=== PATIENT | female | born 1975 | race Caucasian/White ===

== ENCOUNTER → 2018-03-24 | Outpatient (CLI) | payer OTHER ==
--- NOTE | 2018-03-24 19:41 | MR ---
EXAMINATION TYPE: MR cervical spine wo con DATE OF EXAM: 03/24/2018 COMPARISON: None HISTORY: Neck pain, rt arm/hand weakness and numbness x 2 weeks TECHNIQUE: Multiplanar, multisequence images of the cervical spine were acquired. C2-C3: No evidence for degenerative disc disease. No disc bulge/herniation or protrusion. No Canal stenosis. Foramina are patent bilaterally. C3-C4: Minimal central posterior disc bulge causes only slight anterior mass effect on the thecal sac . No Canal stenosis. Foramina are patent bilaterally, there is some mild uncovertebral joint hypert rophy in the right, minimal stenosis. C4-C5: Broad-based posterior disc bulge causes slight anterior mass effect on the thecal sac. No sign ificant foraminal encroachment or central stenosis. C5-C6: Posterior central disc herniation contacts the anterior cervical cord, there is mild cord defo rmity, mild central canal stenosis. Minimal foraminal encroachment due to uncovertebral joint hypertr ophy. C6-C7: Broad-based posterior disc bulge causes mild anterior mass effect on the thecal sac, no signif icant central stenosis. Some mild uncovertebral joint hypertrophy causes only slight foraminal encroa chment. C7-T1: No evidence for degenerative disc disease. No disc bulge/herniation or protrusion. No Canal stenosis. Foramina are patent bilaterally. Cervical segments are intact. There is normal alignment. Cervical spinal cord is of normal signal. Craniovertebral junction relationships are within normal limits. There is loss of disc height and s ignal present at C5-6, C6-7. Multiple bilateral cervical lymph nodes are symmetric, nonenlarged IMPRESSION: Degenerative disc disease, disc herniation at C5-6 centrally. Additional findings above.
== END | disposition home or self-care (01) ==
LOC: RADMRIMAIN 18:15
PROVIDERS: ATTEND Internal Medicine
DX: M50.21 Other cervical disc displacement, high cervical region (principal); M50.30 Other cervical disc degeneration, unspecified cervical region
CPT/HCPCS: 72141

== ENCOUNTER 2018-04-08 12:30 | Inpatient (IN) | payer MEDICAID, OTHER ==
--- NOTE | 2018-04-08 13:07 | ED ---
Psych HPI - General Chief Complaint: Psychiatric Symptoms Stated Complaint: EPS eval Time Seen by Provider: 04/08/18 12:53 Source: patient, RN notes reviewed Mode of arrival: ambulatory - History of Present Illness Initial Comments: This is a 42-year-old female history of opioid abuse who states she is clean now but she is here because she did feeling very depressed and suicidal last couple weeks.. She did fall. She states she lost her lost her kids and can't work because of cervical disc disease. She does have suicidal thoughts and ideation. MD Complaint: suicidal ideation, feels depressed - Related Data Home Medications Medication Instructions Recorded Confirmed Buprenorphine HCl/Naloxone HCl 1 each SL TID 04/08/18 04/08/18 [Suboxone 8 mg-2 mg Sl Film] Furosemide [Lasix] 20 mg PO DAILY 04/08/18 04/08/18 Ibuprofen [Motrin] 800 - 2,400 mg PO DAILY 04/08/18 04/08/18 Lisinopril [Prinivil] 5 mg PO DAILY 04/08/18 04/08/18 Loratadine 10 mg PO DAILY 04/08/18 04/08/18 Metoprolol Succinate [Toprol XL] 25 mg PO DAILY 04/08/18 04/08/18 Pantoprazole [Protonix] 40 mg PO DAILY 04/08/18 04/08/18 Potassium Chloride [Klor-Con 10] 10 meq PO DAILY 04/08/18 04/08/18 QUEtiapine [SEROquel] 100 mg PO HS 04/08/18 04/08/18 Allergies Allergy/AdvReac Type Severity Reaction Status Date / Time No Known Allergies Allergy Verified 04/08/18 14:25 Review of Systems ROS Statement: Those systems with pertinent positive or pertinent negative responses have been documented in the HPI. ROS Other: All systems not noted in ROS Statement are negative. Past Medical History Past Medical History: Hypertension History of Any Multi-Drug Resistant Organisms: None Reported Past Surgical History: Cholecystectomy, Hysterectomy, Orthopedic Surgery Additional Past Surgical History / Comment(s): partial hysterectomy Past Psychological History: Anxiety, Depression Smoking Status: Current every day smoker Past Alcohol Use History: None Reported, Occasional Past Drug Use History: None Reported, Opiates General Exam - General Exam Comments Initial Comments: This is a well-developed well-nourished awake alert oriented history female who is very tearful on examination Limitations: no limitations General appearance: alert, anxious Head exam: Present: atraumatic, normocephalic, normal inspection Eye exam: Present: normal appearance, PERRL, EOMI. Absent: scleral icterus, conjunctival injection, periorbital swelling ENT exam: Present: normal exam, mucous membranes moist Neck exam: Present: normal inspection. Absent: tenderness, meningismus, lymphadenopathy Respiratory exam: Present: normal lung sounds bilaterally. Absent: respiratory distress, wheezes, rales, rhonchi, stridor Cardiovascular Exam: Present: regular rate, normal rhythm, normal heart sounds. Absent: systolic murmur, diastolic murmur, rubs, gallop, clicks GI/Abdominal exam: Present: soft, normal bowel sounds. Absent: distended, tenderness, guarding, rebound, rigid Extremities exam: Present: normal inspection, full ROM, normal capillary refill. Absent: tenderness, pedal edema, joint swelling, calf tenderness Back exam: Present: normal inspection Neurological exam: Present: alert, oriented X3, CN II-XII intact Psychiatric exam: Present: depressed, suicidal ideation Skin exam: Present: warm, dry, intact, normal color. Absent: rash Course Vital Signs 04/08/18 12:38 Temperature 98.7 F Pulse Rate 93 Respiratory 18 Rate Blood Pressure 133/86 O2 Sat by Pulse 99 Oximetry Medical Decision Making - Medical Decision Making The patient was evaluated by the psychiatric service and was admitted for treatment inpatient of depression and suicidal ideation - Lab Data Lab Results 04/08/18 Range/Units 13:35 Urine Opiates Screen Not Detected (NotDetected) Ur Oxycodone Screen Not Detected (NotDetected) Urine Methadone Screen Not Detected (NotDetected) Ur Propoxyphene Screen Not Detected (NotDetected) Ur Barbiturates Screen Not Detected (NotDetected) U Tricyclic Antidepress Detected H (NotDetected) Ur Phencyclidine Scrn Not Detected (NotDetected) Ur Amphetamines Screen Not Detected (NotDetected) U Methamphetamines Scrn Not Detected (NotDetected) U Benzodiazepines Scrn Not Detected (NotDetected) Urine Cocaine Screen Not Detected (NotDetected) U Marijuana (THC) Screen Not Detected (NotDetected) Disposition Clinical Impression: Depression, Suicidal ideation Disposition: TRANSFER TO PSYCH HOSP/UNIT Condition: Serious
[2018-04-08 14:06] LABS: Amphetamine Screen,Urine Not Detected (NotDetected); Barbiturate Screen,Urine Not Detected (NotDetected); Benzodiazepines Screen,Urine Not Detected (NotDetected); Cocaine Screen,Urine Not Detected (NotDetected); Methadone Screen, Urine Not Detected (NotDetected); Opiate Screen,Urine Not Detected (NotDetected); Oxycodone Screen, Urine Not Detected (NotDetected); Phencyclidine Screen,Urine Not Detected (NotDetected); Tricyclic Antidepressant,Urine Detected (NotDetected); Urn Cannabinoid Scrn Not Detected (NotDetected)
[2018-04-08] MEDS ORDERED: MAGNESIUM HYDROXIDE 2,400 MG/10 ML CUP PO PRN (17:02)
[2018-04-08] MEDS ORDERED: MAG HYDROX/AL HYDROX/SIMETH 30 ML CUP PO PRN (17:02)
[2018-04-08] MEDS ORDERED: ACETAMINOPHEN TAB 325 MG TAB PO PRN (17:02)
[2018-04-08] MEDS ORDERED: IBUPROFEN 800 MG TAB PO PRN (17:07)
[2018-04-08 18:14] LABS: Appearance,Urine Clear (Clear); Bilirubin,Urine Negative (Negative); Blood,Urine Negative (Negative); Color,Urine Light Yellow; Glucose,Urine (UA) Negative (Negative); Ketones,Urine Negative (Negative); Leukocyte Esterase,Urine Negative (Negative); Nitrite,Urine Negative (Negative); Protein,Urine Negative (Negative); Specific Gravity,Urine 1.008 (1.001-1.035); Urobilinogen,Urine <2.0 mg/dL (<2.0)
[2018-04-08] MEDS: LORazepam 1 MG TAB PO PRN (19:50)
[2018-04-08] MEDS: SUBOXONE SL SCH ×2 (21:09→21:38)
[2018-04-08] MEDS: QUEtiapine 100 MG TAB PO SCH (21:09)
[2018-04-09] MEDS ORDERED: METOPROLOL SUCCINATE (ER) 25 MG TAB.ER.24H PO SCH (09:00)
[2018-04-09] MEDS ORDERED: LISINOPRIL 5 MG TAB PO SCH (09:00)
[2018-04-09] MEDS: SUBOXONE SL SCH ×3 (09:16→20:48)
[2018-04-09] MEDS: LORATADINE 10 MG TAB PO SCH (09:16)
[2018-04-09] MEDS: FUROSEMIDE 20 MG TAB PO SCH (09:16)
[2018-04-09] MEDS: NICOTINE 14MG/24HR PATCH TRANSDERM SCH (09:16)
[2018-04-09] MEDS: PANTOPRAZOLE 40 MG TABLET PO SCH (09:16)
[2018-04-09] MEDS: POTASSIUM CHLORIDE ER 10 MEQ TAB.ER.PRT PO SCH (09:16)
--- NOTE | 2018-04-09 09:42 | P.HP ---
Psychiatric H&P - . History & Physical: Allergies Allergy/AdvReac Type Severity Reaction Status Date / Time No Known Allergies Allergy Verified 04/09/18 05:48 Vital Signs Temp 98.8 F 04/09/18 06:58 Pulse 83 04/09/18 06:58 Resp 14 04/09/18 06:58 BP 97/52 04/09/18 06:58 Pulse Ox 98 04/08/18 17:52 Intake & Output 04/08/18 04/09/18 04/09/18 18:59 06:59 18:59 Weight 89.811 kg Laboratory Last Values Urine Color Light Yellow 04/08/18 13:35 Urine Appearance Clear (Clear) 04/08/18 13:35 Urine pH 5.0 (5.0-8.0) 04/08/18 13:35 Ur Specific [place] 1.008 (1.001-1.035) 04/08/18 13:35 Urine Protein Negative (Negative) 04/08/18 13:35 Urine Glucose (UA) Negative (Negative) 04/08/18 13:35 Urine Ketones Negative (Negative) 04/08/18 13:35 Urine Blood Negative (Negative) 04/08/18 13:35 Urine Nitrite Negative (Negative) 04/08/18 13:35 Urine Bilirubin Negative (Negative) 04/08/18 13:35 Urine Urobilinogen <2.0 mg/dL (<2.0) 04/08/18 13:35 Ur Leukocyte Esterase Negative (Negative) 04/08/18 13:35 Urine HCG, Qual Not Detected (Not Detectd) 04/08/18 13:35 Urine Opiates Screen Not Detected (NotDetected) 04/08/18 13:35 Ur Oxycodone Screen Not Detected (NotDetected) 04/08/18 13:35 Urine Methadone Screen Not Detected (NotDetected) 04/08/18 13:35 Ur Propoxyphene Screen Not Detected (NotDetected) 04/08/18 13:35 Ur Barbiturates Screen Not Detected (NotDetected) 04/08/18 13:35 U Tricyclic Antidepress Detected (NotDetected) H 04/08/18 13:35 Ur Phencyclidine Scrn Not Detected (NotDetected) 04/08/18 13:35 Ur Amphetamines Screen Not Detected (NotDetected) 04/08/18 13:35 U Methamphetamines Scrn Not Detected (NotDetected) 04/08/18 13:35 U Benzodiazepines Scrn Not Detected (NotDetected) 04/08/18 13:35 Urine Cocaine Screen Not Detected (NotDetected) 04/08/18 13:35 U Marijuana (THC) Screen Not Detected (NotDetected) 04/08/18 13:35 04/09/18 09:13 IDENTIFYING DATA: This patient is a 42-year-old female who was admitted to the mental health unit for worsening symptoms of depression and acute suicidal ideation. HPI: The patient presents reporting worsening symptoms of depression since December. She reports feeling hopeless she is tearful on a regular basis. Energy is low appetite is decreased with noted weight loss. She reports feeling overwhelmed and had thoughts of killing herself via overdose with opiate medication. She states that she was in rehab for her opiate use disorder and was released from rehab in December. Since then her indicated he wanted a separation. She was employed for just a few weeks and recently lost her job. She finds herself sad and confused as to why her left. They have 4 children together and they reside with him. She is reporting no homicidal ideation intent or plan. She endorses no auditory or visual hallucinations or specific delusions. No reported history of hypomanic or manic episodes. She reports anxiety after the separation but no ongoing anxiety disorders. She resides with her mother and states there are no firearms in that home. PAST PSYCHIATRIC HISTORY: As is her first inpatient psychiatric admission. She has a history of 1 suicide attempt at age 16 via medication overdose after her parents split. She works with a therapist at [facility] and sees her regularly since December. She is prescribed Seroquel 100 mg at bedtime and Suboxone 8 mg 3 times a day. She was tried on BuSpar while at [facility]. PMH: Herniated disc in her neck, hypertension, knee pain she is prescribed Lasix lisinopril and metoprolol ALLERGIES: NO KNOWN DRUG ALLERGIES MEDICATIONS: As above CHEMICAL DEPENDENCY HISTORY: History of opioid use disorder for 11 years, she was using 7, 10 mg Percocets or Vicodin's a day. No use of heroin. She reports no use of cocaine. She did use marijuana but none recently. She states that she was a daily alcohol user but stopped in 2006. She has been in rehab once at [facility] she was there for 2 weeks and was released in December. FAMILY PSYCHIATRIC HISTORY: Her son is on Zoloft for anxiety, no suicides in the family FAMILY CHEMICAL DEPENDENCY HISTORY: She reports 3 of her siblings use illicit drugs SOCIAL HISTORY: The patient is 42 years old she's been for 12 years they are recently . The patient resides with her mother she states that she gets along with her well. She has 4 children ages 20 06/17/2014 and 13. They reside with their father. 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 She has a 10th grade education she quit school as she was . No history of service. She was born and raised in the [facility] and raised by both parents until the age of 16. Legal history none reported abuse history none reported MENTAL STATUS EXAM: The patient is alert she is dressed in hospital gowns. Hygiene grooming adequate. Eye contact intermittent. She endorses a depressed mood with suicidal ideation and hopelessness thinking. She reports no homicidal ideation intent or plan. She endorses no auditory or visual hallucinations or any specific delusions and there is no observed evidence of psychosis. She demonstrates no tangential thinking loose associations or flight of ideas she does not appear hypomanic or manic. Affect is dysphoric and congruent to reported mood. She is tearful during the session. She demonstrates no verbal or physical aggressiveness. Insight and judgment limited. She is oriented to person place and date she is able to name the days the week backwards. STRENGTHS/WEAKNESSES: Strengths: Housing, willingness to receive treatment weaknesses: Ongoing symptoms of depression INTELLECTUAL FUNCTIONING: Average IMPRESSIONS: [] 1. Major depressive disorder recurrent severe without psychosis, opioid use disorder, alcohol use disorder in remission 2. Medical comorbidities include herniated disc, hypertension, edema PLAN: The patient has been admitted to the mental health unit voluntarily. We reviewed her resenting symptoms and treatment options. We decided to initiate Cymbalta 30 mg daily which will be titrated during the course of her stay. This is intended to address depressive symptoms and may help physical pain. She will continue on the Seroquel for now as she finds it helpful for sleep. She will be seen by internal medicine for routine history and physical exam. Social work has met with the patient to complete a psychosocial assessment. We will monitor her for safety and encourage participation in the milieu. We will involve her mother in treatment and discharge planning as she will allow.
[2018-04-09] MEDS: DULoxetine HCL 30 MG CAPSULE.DR PO SCH (10:02)
[2018-04-09 10:51] LABS: Basophils # (A) 0.1 k/uL (0-0.2); Basophils % (A) 1 %; Eosinophils # (A) 0.2 k/uL (0-0.7); Eosinophils % (A) 3 %; HGB 12.8 gm/dL (11.4-16.0); Lymphocytes # (A) 2.6 k/uL (1.0-4.8); Lymphocytes % (A) 38 %; MCH 30.3 pg (25.0-35.0); MCHC 32.7 g/dL (31.0-37.0); MCV 92.6 fL (80.0-100.0); Mean Platelet Volume 5.9; Monocytes # (A) 0.3 k/uL (0-1.0); Monocytes % (A) 5 %; Neutrophils # (A) 3.6 k/uL (1.3-7.7); Neutrophils % (A) 52 %; Platelet Count 471 k/uL (150-450); RBC 4.21 m/uL (3.80-5.40); RDW 12.7 % (11.5-15.5); WBC 6.9 k/uL (3.8-10.6)
[2018-04-09 11:17] VITALS: BMI 32.9
[2018-04-09 11:28] LABS: ALT 18 U/L (9-52); AST 17 U/L (14-36); Albumin 3.8 g/dL (3.5-5.0); Alkaline Phosphatase 101 U/L (38-126); Anion Gap 6 mmol/L; Blood Urea Nitrogen 16 mg/dL (7-17); Calcium 9.4 mg/dL (8.4-10.2); Carbon Dioxide 29 mmol/L (22-30); Chloride 107 mmol/L (98-107); Cholesterol 232 mg/dL (<200); Glucose 100 mg/dL (74-99); HDL Cholesterol 42 mg/dL (40-60); LDL Cholesterol,Calculated 162 mg/dL (0-99); Potassium 4.5 mmol/L (3.5-5.1); Sodium 142 mmol/L (137-145); Total Bilirubin 0.9 mg/dL (0.2-1.3); Total Protein 6.9 g/dL (6.3-8.2); Triglycerides 141 mg/dL (<150)
[2018-04-09] MEDS: LORazepam 1 MG TAB PO PRN (14:43)
--- NOTE | 2018-04-09 16:56 | P.CONS ---
History of Present Illness - Reason for Consult Medical clearance, hypertension - History of Present Illness This is a pleasant 42-year-old female admitted because of suicidal ideation depression patient does have opiate abuse in the form of pain pills. Patient denied any fever chills nausea vomiting patient is comparing of pain in the neck area patient is already on Motrin and the GI prophylaxis with Protonix which is appropriate at this time. Patient is much less depressed compared to yesterday patient does smoke counseling was provided patient denied any fever chills nausea vomiting abdominal pain dysuria. Patient does have history of hypertension her blood pressure is bit low and she is bit tachycardic because of which I'll increase the dose of metoprolol discontinue lisinopril. Patient is on Suboxone for opiate abuse she denied any IV drugs in the past Review of Systems REVIEW OF SYSTEMS: CONSTITUTIONAL: No fever, no malaise, no fatigue. HEENT: No recent visual problems or hearing problems. Denied any sore throat. CARDIOVASCULAR: No chest pain, orthopnea, PND, no palpitations, no syncope. PULMONARY: No shortness of breath, no cough, no hemoptysis. GASTROINTESTINAL: No diarrhea, no nausea, no vomiting, no abdominal pain. NEUROLOGICAL: No headaches, no weakness, no numbness. HEMATOLOGICAL: Denies any bleeding or petechiae. GENITOURINARY: Denies any burning micturition, frequency, or urgency. MUSCULOSKELETAL/RHEUMATOLOGICAL: Complaining of pain in the neck area which is chronic ENDOCRINE: Denies any polyuria or polydipsia. The rest of the 14-point review of systems is negative. Past Medical History Past Medical History: Hypertension History of Any Multi-Drug Resistant Organisms: None Reported Past Surgical History: Cholecystectomy, Hysterectomy, Orthopedic Surgery Additional Past Surgical History / Comment(s): partial hysterectomy Past Anesthesia/Blood Transfusion Reactions: No Reported Reaction Smoking Status: Current every day smoker Medications and Allergies Home Medications Medication Instructions Recorded Confirmed Type Buprenorphine HCl/Naloxone HCl 1 each SL TID 04/08/18 04/08/18 History [Suboxone 8 mg-2 mg Sl Film] Furosemide [Lasix] 20 mg PO DAILY 04/08/18 04/08/18 History Ibuprofen [Motrin] 800 - 2,400 mg PO DAILY 04/08/18 04/08/18 History Lisinopril [Prinivil] 5 mg PO DAILY 04/08/18 04/08/18 History Loratadine 10 mg PO DAILY 04/08/18 04/08/18 History Metoprolol Succinate [Toprol XL] 25 mg PO DAILY 04/08/18 04/08/18 History Pantoprazole [Protonix] 40 mg PO DAILY 04/08/18 04/08/18 History Potassium Chloride [Klor-Con 10] 10 meq PO DAILY 04/08/18 04/08/18 History QUEtiapine [SEROquel] 100 mg PO HS 04/08/18 04/08/18 History Allergies Allergy/AdvReac Type Severity Reaction Status Date / Time No Known Allergies Allergy Verified 04/09/18 05:48 Physical Exam Vitals: Vital Signs Temp Pulse Resp BP BP Pulse Ox 04/09/18 09:00 118 H 111/70 04/09/18 06:58 98.8 F 83 14 97/52 04/08/18 20:00 115 H 114/80 04/08/18 19:52 115 H 114/80 04/08/18 17:52 97.6 F 80 16 123/82 98 Intake and Output 04/09/18 04/09/18 04/09/18 06:59 14:59 22:59 Other: Weight 89.811 kg PHYSICAL EXAMINATION: GENERAL: The patient is alert and oriented x3, not in any acute distress. Well developed, well nourished. HEENT: Pupils are round and equally reacting to light. EOMI. No scleral icterus. No conjunctival pallor. Normocephalic, atraumatic. No pharyngeal erythema. No thyromegaly. CARDIOVASCULAR: S1 and S2 present. No murmurs, rubs, or gallops. PULMONARY: Chest is clear to auscultation, no wheezing or crackles. ABDOMEN: Soft, nontender, nondistended, normoactive bowel sounds. No palpable organomegaly. MUSCULOSKELETAL: No joint swelling or deformity. EXTREMITIES: No cyanosis, clubbing, or pedal edema. NEUROLOGICAL: Gross neurological examination did not reveal any focal deficits. SKIN: No rashes. Results CBC & Chem 7: 04/09/18 10:20 04/09/18 10:20 Labs: Abnormal Lab Results - Last 24 Hours (Table) 04/09/18 04/09/18 Range/Units 10:20 10:20 Plt Count 471 H (150-450) k/uL Glucose 100 H (74-99) mg/dL Cholesterol 232 H (<200) mg/dL LDL Cholesterol, Calc 162 H (0-99) mg/dL Assessment and Plan Plan: Hypertension: Discontinue lisinopril because of above-mentioned reasons increase metoprolol because of above-mentioned reasons cardia to monitor the blood pressure -Opiate abuse history can use ibuprofen which is appropriate for her neck pain along with Protonix. -Depression and an anxiety: Management as per primary service -Chronic neck pain
[2018-04-09 18:38] LABS: Hemoglobin A1C 5.1 % (4.0-6.0)
[2018-04-09] MEDS: QUEtiapine 100 MG TAB PO SCH (20:48)
[2018-04-10] MEDS: NICOTINE 14MG/24HR PATCH TRANSDERM SCH (07:52)
[2018-04-10] MEDS: PANTOPRAZOLE 40 MG TABLET PO SCH (07:52)
[2018-04-10] MEDS: LORATADINE 10 MG TAB PO SCH (07:52)
[2018-04-10] MEDS: DULoxetine HCL 30 MG CAPSULE.DR PO SCH (07:52)
[2018-04-10] MEDS: METOPROLOL SUCCINATE (ER) 50 MG TAB.ER.24H PO SCH (07:55)
[2018-04-10] MEDS: FUROSEMIDE 20 MG TAB PO SCH (07:55)
[2018-04-10] MEDS: POTASSIUM CHLORIDE ER 10 MEQ TAB.ER.PRT PO SCH (07:56)
[2018-04-10] MEDS: SUBOXONE SL SCH ×3 (08:18→21:31)
--- NOTE | 2018-04-10 11:56 | P.PN ---
Progress Note - Text Interval history: The patient is found in group she follows me to an interview room. She indicates her mood is improving. She has no questions or concerns regarding her Cymbalta. She was able to sleep last night and prefers to keep the Seroquel. Appetite stable. She has been participating in groups. She indicates that she does think staying longer will be of benefit. She inquires as to when she will be discharged and we discussed Friday as a possibility if she is clinically stable. We discussed having social work reach out to arrange a support meeting. Mental status exam: The patient is alert she is dressed in her own clothing hygiene grooming adequate. Speech is fluent spontaneous nonpressured. Affect is more euthymic in appearance. She is cooperative and participates in the conversation. She indicates feeling safe here and describes no acute suicidal ideation intent or plan. She is reporting no homicidal ideation intent or plan. No report or evidence of psychosis. She demonstrates no tangential thinking loose associations or flight of ideas. She demonstrates no verbal or physical aggressiveness. She demonstrates no involuntary repetitive movements. Insight and judgment improving. Plan: The patient will continue on Cymbalta 30 mg daily after she has been on this 2-3 days we will titrate to 60 mg daily. If she is sufficiently stabilized and appears to have sufficient support we will consider discharging her Friday. Vital signs reviewed. We will continue monitoring for safety she is encouraged to continue participating in the milieu.
[2018-04-10] MEDS: LORazepam 1 MG TAB PO PRN (18:58)
[2018-04-10] MEDS: QUEtiapine 100 MG TAB PO SCH (21:27)
[2018-04-11] MEDS: NICOTINE 14MG/24HR PATCH TRANSDERM SCH (09:23)
[2018-04-11] MEDS: DULoxetine HCL 30 MG CAPSULE.DR PO SCH (09:23)
[2018-04-11] MEDS: METOPROLOL SUCCINATE (ER) 50 MG TAB.ER.24H PO SCH (09:24)
[2018-04-11] MEDS: POTASSIUM CHLORIDE ER 10 MEQ TAB.ER.PRT PO SCH (09:24)
[2018-04-11] MEDS: PANTOPRAZOLE 40 MG TABLET PO SCH (09:24)
[2018-04-11] MEDS: FUROSEMIDE 20 MG TAB PO SCH (09:24)
[2018-04-11] MEDS: LORATADINE 10 MG TAB PO SCH (09:24)
[2018-04-11] MEDS: SUBOXONE SL SCH ×3 (09:25→21:14)
--- NOTE | 2018-04-11 12:07 | P.PN ---
Progress Note - Text Progress Note Date: 04/11/18 Interval history: Patient seen in [facility] [place]. She reports that she is feeling better overall. She does not voice any adverse psychotropic medication side effects. Sleep and appetite seem to be doing well. She was found in the hallway doing some walking. Mental status exam: She is alert and cooperative with the interview. Her speech is fluent, not rapid or pressured. Thought processes are organized. Her mood overall is improved. She denies any thoughts of harm to self or others. No evidence of active psychosis or agitation. Plan: Patient be maintained on current psychotropic medications. Continue to monitor for any medication side effects and monitor her ongoing response. Continue to cover this patient through the weekend.
[2018-04-11] MEDS: LORazepam 1 MG TAB PO PRN (17:47)
[2018-04-11] MEDS: QUEtiapine 100 MG TAB PO SCH (21:14)
[2018-04-12] MEDS: NICOTINE 14MG/24HR PATCH TRANSDERM SCH (08:34)
[2018-04-12] MEDS: LORATADINE 10 MG TAB PO SCH (08:35)
[2018-04-12] MEDS: SUBOXONE SL SCH ×3 (08:35→20:41)
[2018-04-12] MEDS: METOPROLOL SUCCINATE (ER) 50 MG TAB.ER.24H PO SCH (08:35)
[2018-04-12] MEDS: PANTOPRAZOLE 40 MG TABLET PO SCH (08:35)
[2018-04-12] MEDS: DULoxetine HCL 30 MG CAPSULE.DR PO SCH (08:35)
[2018-04-12] MEDS: FUROSEMIDE 20 MG TAB PO SCH (08:35)
[2018-04-12] MEDS: POTASSIUM CHLORIDE ER 10 MEQ TAB.ER.PRT PO SCH (08:35)
--- NOTE | 2018-04-12 11:01 | P.PN ---
Progress Note - Text Progress Note Date: 04/12/18 Interval history: Patient is seen again in [facility] today. She says she slept about 10 hours last night. She does talk about feeling like she is ready for discharge Friday. She does not seem to voice any adverse psychotropic medication side effects. She makes reference to a family meeting prior to discharge. She talks about having programming upcoming at [place]. Mental status exam: She is alert and cooperative with the interview. Her speech is fluent, not rapid or pressured. Thought processes are organized. She describes her mood as "fine, tired." She does not verbalize any thoughts of harm to self or others. No evidence of active psychosis or agitation. Plan: Patient will be maintained current psychotropic medication regimen. We' ll continue to monitor for any medication side effects monitor her ongoing response to treatment.
[2018-04-12] MEDS: LORazepam 1 MG TAB PO PRN (17:37)
[2018-04-12] MEDS: QUEtiapine 100 MG TAB PO SCH (20:41)
[2018-04-13] MEDS: LORazepam 1 MG TAB PO PRN (05:22)
[2018-04-13 06:47] VITALS: RESP 14; TEMP 97.7
[2018-04-13 06:48] VITALS: BP 108/68; PULSE 117
[2018-04-13] MEDS: LORATADINE 10 MG TAB PO SCH (09:08)
[2018-04-13] MEDS: FUROSEMIDE 20 MG TAB PO SCH (09:08)
[2018-04-13] MEDS: POTASSIUM CHLORIDE ER 10 MEQ TAB.ER.PRT PO SCH (09:08)
[2018-04-13] MEDS: DULoxetine HCL 30 MG CAPSULE.DR PO SCH (09:08)
[2018-04-13] MEDS: SUBOXONE SL SCH (09:08)
[2018-04-13] MEDS: PANTOPRAZOLE 40 MG TABLET PO SCH (09:08)
[2018-04-13] MEDS: METOPROLOL SUCCINATE (ER) 50 MG TAB.ER.24H PO SCH ×2 (09:08→09:21)
[2018-04-13] MEDS: NICOTINE 14MG/24HR PATCH TRANSDERM SCH (09:09)
--- NOTE | 2018-04-13 09:15 | P.DS ---
Providers Date of admission: 04/08/18 15:32 Expected date of discharge: 04/13/18 Attending physician: Carlton Mcmillan Consults: 04/08/18 17:02 Consult Physician Routine Consulting Provider: Jayshree Reza Consult Reason/Comments: H & P medical managment Do you want consulting provider notified?: Yes Primary care physician: Andree Deutsch - Discharge Diagnosis(es) (1) Major depressive disorder, recurrent severe without psychotic features Current Visit: Yes Status: Acute Priority: High (2) Opioid use disorder Current Visit: Yes Status: Acute Priority: High (3) Alcohol use disorder, mild, in sustained remission Current Visit: Yes Status: Acute Priority: Low Hospital Course: Brief summary of admission note: This patient is a 42-year-old female who is admitted to the mental health unit for worsening symptoms of depression with acute suicidal ideation. The patient reported severe symptoms of depression since December she had been tearful on a regular basis. She described low energy, decreased appetite with weight loss. She felt overwhelmed and had thoughts of killing herself via opiate overdose. The principal stressor has been her deciding to separate from her. She recently lost her job as well. For full details please refer to my psychiatric evaluation dated 04/09/2018. Summary of hospital course: The patient was admitted to the mental health unit voluntarily. We reviewed her presenting symptoms and treatment options. We decided we would start her on Cymbalta with a plan of titrating to 60 mg daily. She wished to remain on Seroquel 100 mg at bedtime. She was seen by internal medicine for routine history and physical exam. Social work met with the patient to complete a psychosocial assessment and to begin discharge planning. The patient participated in group she demonstrated no agitated behavior. She reported a progressive improvement of symptoms while here. Social work will arrange a support meeting which will most likely involve her mother. The patient plans to continue on Suboxone with her primary care physician. She indicates she has been successful in abstaining from substances. Mental status exam: The patient is an overweight female appearing her stated age. She presents with good hygiene grooming. Eye contact is appropriate speech is fluent spontaneous nonpressured. She reports her mood is much better. Affect is euthymic. She denies having any suicidal or homicidal ideation intent or plan. She reports no auditory or visual hallucinations or any specific delusions. There is no observed evidence of psychosis. She demonstrates no tangential thinking loose associations or flight of ideas. She does not appear hypomanic or manic. She demonstrates no verbal or physical aggressiveness. She demonstrates no involuntary repetitive movements. Insight and judgment have improved. She demonstrates future oriented thinking. Impression 1. Major depressive disorder recurrent severe without psychosis, opioid use disorder, alcohol use disorder in remission 2. Medical comorbidities including herniated disc, hypertension, edema Plan: The patient will be discharged from the mental health unit today following her support meeting which will most likely involve her mother. The patient will continue on Cymbalta 60 mg daily Seroquel 100 mg at bedtime. Social work will arrange for outpatient follow-up for mental health services. The patient plans on continuing Suboxone treatment with her primary care physician. She is instructed to abstain from any use of alcohol marijuana or any illicit drug as these will elevate her safety risk. There is no imminent safety risk she is appropriate for transition to outpatient care. She is instructed to return to the hospital with any acute safety concerns. Patient Condition at Discharge: Stable Plan - Discharge Summary Discharge Rx Participant: No New Discharge Prescriptions: New DULoxetine HCL [Cymbalta] 60 mg PO DAILY #30 cap Metoprolol Succinate (ER) [Toprol XL] 50 mg PO DAILY #30 tab.er.24h Nicotine 14Mg/24Hr Patch [Habitrol] 1 patch TRANSDERM DAILY #12 patch Continue QUEtiapine [SEROquel] 100 mg PO HS Pantoprazole [Protonix] 40 mg PO DAILY Potassium Chloride [Klor-Con 10] 10 meq PO DAILY Loratadine 10 mg PO DAILY Ibuprofen [Motrin] 800 - 2,400 mg PO DAILY Furosemide [Lasix] 20 mg PO DAILY Buprenorphine HCl/Naloxone HCl [Suboxone 8 mg-2 mg Sl Film] 1 each SL TID Discontinued Metoprolol Succinate [Toprol XL] 25 mg PO DAILY Lisinopril [Prinivil] 5 mg PO DAILY Discharge Medication List Buprenorphine HCl/Naloxone HCl [Suboxone 8 mg-2 mg Sl Film] 1 each SL TID [History] Furosemide [Lasix] 20 mg PO DAILY 04/08/18 [History] Ibuprofen [Motrin] 800 - 2,400 mg PO DAILY 04/08/18 [History] Loratadine 10 mg PO DAILY 04/08/18 [History] Pantoprazole [Protonix] 40 mg PO DAILY 04/08/18 [History] Potassium Chloride [Klor-Con 10] 10 meq PO DAILY 04/08/18 [History] QUEtiapine [SEROquel] 100 mg PO HS 04/08/18 [History] DULoxetine HCL [Cymbalta] 60 mg PO DAILY #30 cap 04/13/18 [Rx] Metoprolol Succinate (ER) [Toprol XL] 50 mg PO DAILY #30 tab.er.24h 04/13/18 [Rx ] Nicotine 14Mg/24Hr Patch [Habitrol] 1 patch TRANSDERM DAILY #12 patch 04/13/18 [ Rx] Follow up Appointment(s)/Referral(s): Get Candelario MD [Primary Care Provider] - 1-2 days
== END 2018-04-13 14:32 | disposition home or self-care (01) | DRG 885 ==
LOC: EC 12:30 → 3MHU 15:32
PROVIDERS: ADMIT Psychiatry & Neurology Psychiatry; ATTEND Psychiatry & Neurology Psychiatry
DX: F33.2 Major depressive disorder, recurrent severe without psychotic features (principal); R45.851 Suicidal ideations; E66.3 Overweight; Z68.32 Body mass index [BMI] 32.0-32.9, adult; F10.11 Alcohol abuse, in remission; F11.10 Opioid abuse, uncomplicated; Z71.6 Tobacco abuse counseling; F17.210 Nicotine dependence, cigarettes, uncomplicated; F41.9 Anxiety disorder, unspecified; I10 Essential (primary) hypertension; M50.20 Other cervical disc displacement, unspecified cervical region; G89.29 Other chronic pain; Z56.0 Unemployment, unspecified; Z79.899 Other long term (current) drug therapy; Z90.711 Acquired absence of uterus with remaining cervical stump; Z63.5 Disruption of family by separation and divorce; Z91.5 Personal history of self-harm; Z81.3 Family history of other psychoactive substance abuse and dependence; Z81.8 Family history of other mental and behavioral disorders; R60.9 Edema, unspecified
CPT/HCPCS: 80053; 80061; 80306; 81003; 81025; 82075; 83036; 84443; 85025; 99285

== ENCOUNTER → 2018-04-22 | Outpatient (CLI) | payer OTHER ==
[2018-04-22 12:55] VITALS: BP 93/63; PULSE 92; RESP 16; TEMP 98.5
--- NOTE | 2018-04-22 13:10 | P.PAINCN ---
History of Present Illness - Reason for Consult Consult date: 04/22/18 Neck pain and right arm pain - Chief Complaint Neck pain and right arm pain - History of Present Illness This a very pleasant 42-year-old woman who presents to clinic today for evaluation of her neck pain and right arm pain. This began approximately 1-1/2 months ago. She reports that she noticed she had pain in her neck and numbness and pain down her right arm as well as weakness in her right arm after she woke up from sleeping. There was no clear inciting event. She denies bowel or bladder dysfunction. She denies any symptoms in her lower extremities. She does report that she has bad knees and knee pain with this. Review of Systems Positive for right arm weakness, numbness in the middle and ring finger as well as numbness on the lateral forearm and bilateral knee pain Past Medical History Past Medical History: Hypertension History of Any Multi-Drug Resistant Organisms: None Reported Past Surgical History: Cholecystectomy, Hysterectomy, Orthopedic Surgery Additional Past Surgical History / Comment(s): partial hysterectomy Past Anesthesia/Blood Transfusion Reactions: No Reported Reaction Smoking Status: Current every day smoker Medications and Allergies Home Medications Medication Instructions Recorded Confirmed Type Buprenorphine HCl/Naloxone HCl 1 each SL TID 04/08/18 04/22/18 History [Suboxone 8 mg-2 mg Sl Film] Furosemide [Lasix] 20 mg PO DAILY 04/08/18 04/22/18 History Ibuprofen [Motrin] 800 - 2,400 mg PO DAILY 04/08/18 04/22/18 History Loratadine 10 mg PO DAILY 04/08/18 04/22/18 History Pantoprazole [Protonix] 40 mg PO DAILY 04/08/18 04/22/18 History Potassium Chloride [Klor-Con 10] 10 meq PO DAILY 04/08/18 04/22/18 History QUEtiapine [SEROquel] 100 mg PO HS 04/08/18 04/22/18 History DULoxetine HCL [Cymbalta] 60 mg PO DAILY #30 cap 04/13/18 04/22/18 Rx Metoprolol Succinate (ER) [Toprol 50 mg PO DAILY #30 tab.er.24h 04/13/18 Rx XL] Allergies Allergy/AdvReac Type Severity Reaction Status Date / Time No Known Allergies Allergy Verified 04/09/18 05:48 Physical Exam Vitals: Vital Signs Temp Pulse Resp BP 04/22/18 12:50 98.5 F 92 16 93/63 Intake and Output 04/21/18 04/22/18 04/22/18 22:59 06:59 14:59 Other: Weight 87.997 kg General: The patient is alert and oriented. Patient is not sedated Patient answers all question appropriately. Cardiac: Heart is regular in rate and rhythm Respiratory: Clear to auscultation. No audible wheezes. Abdomen: Soft nontender nondistended. Musculoskeletal: Strength is normal bilaterally. Sensation is normal bilaterally. Straight leg raise is negative bilaterally. Decreased strength with biceps and triceps function on the right side. Neurological: Reflexes are preserved and symmetric bilaterally. Reflexes are very brisk at the brachial radialis and triceps and biceps on the right side. Decreased sensation in the right lateral forearm. Results Results: MRI of the patient's cervical spine dated 03/24/2018 reveals a posterior central disc herniation at C5 6 with mild cord deformity mild central canal stenosis minimal foraminal encroachment due to uncovertebral joint hypertrophy. Broad-based disc bulge at C6 7 Assessment and Plan Assessment: Plan of Care 1. Medications: Patient will continue utilize Tylenol and anti-inflammatory medications to treat her pain. She is chronically on Suboxone for opiate and alcohol addiction. 2. Interventions: We will schedule patient for a cervical epidural steroid injection at C7-T1 3. Referrals: I'm referring the patient to physical therapy 4. Testing: None 5. Follow-up: Cervical epidural steroid injection (1) Cervical radiculopathy at C6 Current Visit: Yes Status: Acute Code(s): M54.12 - RADICULOPATHY, CERVICAL REGION SNOMED Code(s): 84854458 PQRS Measure Charge Sheet Measure #130: Documentation of Current Meds in Medical Chart: Patient's medications documented in chart Measure #226: Tobacco Use: Screen & Cessation Intervention: Pt not a tobacco user Measure #111: Pneumonia Vaccination: Pneumococcal vaccine NOT administered or previously given Measure #47: Advance Care Plan: Advance care planning discussed & documented, pt chose/unable to give Measure #412: Opioid Treatment Agreement: No documentation of signed opioid treatment agreement Measure #408: Opioid Therapy Follow-up Evaluation: Patient had NO f/u eval minimum every 3 months during opioid therapy Measure #317: Preventitive Care & Scrn High Bld Press & F/U: Normal blood pressure, f/u not required Measure #128: Body Mass Index (BMI) Screening & Follow-up: BMI documented ABOVE normal parameters - f/u documented Measure #131: Pain Assessment & Follow-up: Pain positive & plan documented Measure #431: Unhealthy Alcohol Use Preventative Care & Scrn: Patient not identified as an unhealthy alcohol user PQRS Narrative: Smoking Status Current every day smoker Blood Pressure 93/63 Pain Intensity [Right Arm] 6 Scale Used Numeric (1 - 10) Home Medications: Ambulatory Orders Buprenorphine HCl/Naloxone HCl [Suboxone 8 mg-2 mg Sl Film] 1 each SL TID Furosemide [Lasix] 20 mg PO DAILY 04/08/18 Ibuprofen [Motrin] 800 - 2,400 mg PO DAILY 04/08/18 Loratadine 10 mg PO DAILY 04/08/18 Pantoprazole [Protonix] 40 mg PO DAILY 04/08/18 Potassium Chloride [Klor-Con 10] 10 meq PO DAILY 04/08/18 QUEtiapine [SEROquel] 100 mg PO HS 04/08/18 DULoxetine HCL [Cymbalta] 60 mg PO DAILY #30 cap 04/13/18 Metoprolol Succinate (ER) [Toprol XL] 50 mg PO DAILY #30 tab.er.24h 04/13/18
== END ==
LOC: PNWHC3 12:27
PROVIDERS: ATTEND Pain Medicine Pain Medicine
DX: M54.12 Radiculopathy, cervical region (principal); F17.200 Nicotine dependence, unspecified, uncomplicated; Z79.899 Other long term (current) drug therapy; Z79.891 Long term (current) use of opiate analgesic
CPT/HCPCS: 99211

== ENCOUNTER 2018-05-05 08:00 | Day surgery (SDC) | payer OTHER ==
[2018-04-29 13:27] VITALS: BMI 32.9
[~2018-05-05 08:00] MED LIST: SODIUM CHLORIDE 0.9% 500 ML 500 ML IV SCH
[2018-05-05 08:20] VITALS: RESP 16; TEMP 98.4
[2018-05-05] MEDS ORDERED: LACTATED RINGERS 1,000 ML IV ONE (08:25)
[2018-05-05] MEDS ORDERED: LIDOCAINE 1% 20 ML VIAL (10MG/ML) FOR IV START INTRADERMA ONE (08:26)
--- NOTE | 2018-05-05 08:39 | P.PCN ---
Date of Procedure: 05/05/18 Procedure(s) Performed: . PROCEDURE 1. Cervical epidural steroid injection under fluoroscopic guidance, C7-T1 2. Cervical epidurogram. PREOPERATIVE DIAGNOSIS: 1- Cervical radiculopathy. POSTOPERATIVE DIAGNOSIS: : 1- Cervical radiculopathy. ANESTHESIA: Local anesthesia with lidocaine 1 % , and moderate sedation, with Versed 2 mg and Fentanyl 50 mcg. EBL 0 PROCEDURE INDICATION: The patient with neck pain and radiculitis unresponsive to conservative treatment consents for procedure. PROCEDURE DESCRIPTION / TECHNIQUE: The patient was seen and identified in the preoperative area. Risks, benefits, complications, including but not limited to infections ,bleeding , allergic reactions to the medications ,and not complete pain releife, and alternatives were discussed with the patient, the patient agreed to proceed with the procedure and signed the consent. Patient was taken to the OR and time out was completed. The patient was placed in the prone position on the procedure table. A pillow was placed under the patients chest to increase the cervical interlaminar space. The cervical area was prepped and draped in the usual sterile fashion. Vital signs were closely monitored during the procedure. Conscious sedation was used during the procedure to decrease patients anxiety. Using anterior-posterior fluoroscopy, the C7-T1 interlaminar space was identified and the skin over this site was marked and then infiltrated with 1% lidocaine subcutaneously. Subsequently, a 20-gauge 3-1/2-inch Tuohy epidural needle was inserted and advanced toward the epidural space by means of the `` hanging-drop technique and guided by AP and lateral fluoroscopy. The correct needle position in the epidural space was verified with the injection of 2 mL of the water soluble contrast dye Isovue-200 and observing an excellent epidurogram with the epidural spread of the dye, after negative aspiration for blood and CSF and in the absence of paresthesias. Again after negative aspiration, mixture containing 20 mg Dexamethasone and 2 ml of preservative- free normal saline injected and a washout of epidurogram was seen. Needle was withdrawn intact, skin was cleansed, and bandages were applied. Complications= none. Disposition= patient was placed in supine position and transferred to the recovery room area in stable condition and there was no evidence of upper or lower extremity motor or sensory deficit after the procedure patient was discharged from recovery room after discharge criteria met and home discharge instructions was given by the staff and patient will follow with the pain clinic in 2-4 weeks
[2018-05-05] MEDS ORDERED: IV FLUID CONTINUATION 1,000 ML IV ONE (08:45)
[2018-05-05 09:02] VITALS: BP 104/71; PULSE 84
--- NOTE | 2018-05-05 09:23 | FL ---
Fluoroscopy HISTORY: Pain 4 seconds fluoroscopy time supplied to the referring clinician. 1 intraoperative C-arm images docume nt the procedure. See dictated report from anesthesia.
== END 2018-05-05 09:16 | disposition home or self-care (01) ==
LOC: ORPAIN 08:00
PROVIDERS: ATTEND Specialist
DX: M54.12 Radiculopathy, cervical region (principal)
CPT/HCPCS: 62321; J2250; J1100; J3010; Q9966

== ENCOUNTER 2018-05-20 07:54 | Day surgery (SDC) | payer OTHER ==
[2018-05-18 13:03] VITALS: BMI 32.9
[2018-05-20 08:21] VITALS: TEMP 97.8
[2018-05-20] MEDS ORDERED: LACTATED RINGERS 1,000 ML IV ONE ×4 (08:21→09:28)
[2018-05-20] MEDS ORDERED: LIDOCAINE 1% 20 ML VIAL (10MG/ML) FOR IV START INTRADERMA ONE (08:22)
--- NOTE | 2018-05-20 09:24 | P.PCN ---
Date of Procedure: 05/20/18 Surgeon: Marianne Ventura Pathology: none sent Condition: stable Disposition: PACU Description of Procedure: PROCEDURE 1. Cervical epidural steroid injection under fluoroscopic guidance, C7-T1 Rt paramedian approach. 2. Cervical epidurogram. : PREOPERATIVE DIAGNOSIS: Cervical radiculopathy, cervical spondylosis without myelopathy POSTOPERATIVE DIAGNOSIS: : Same as above ANESTHESIA: Local anesthesia with 1% lidocaine and IV moderate conscious sedation with Versed and Fentanyl . EBL 0 PROCEDURE INDICATION: The patient with neck pain and radiculopathy unresponsive to conservative treatment consents for procedure. PROCEDURE DESCRIPTION / TECHNIQUE: The patient was seen and identified in the preoperative area. Risks, benefits, complications, including but not limited to infections ,bleeding , allergic reactions to the medications ,and not complete pain relief, and alternatives were discussed with the patient, the patient agreed to proceed with the procedure and signed the consent. Patient was taken to the OR and time out was completed. The patient was placed in the prone position on the procedure table. A pillow was placed under the patients chest to increase the flexion of the cervical spine . The cervical area was prepped and draped in the usual sterile fashion. Vital signs were closely monitored during the procedure. Conscious sedation was used during the procedure to decrease patients anxiety. Using anterior-posterior fluoroscopy, the C7-T1 interlaminar space was identified and the skin over this site was marked and then infiltrated with 1% lidocaine subcutaneously. Subsequently, a 20-gauge 3-1/2-inch Tuohy epidural needle was inserted and advanced toward the epidural space by means of loss of resistance to air technique and guided by AP and lateral fluoroscopy. The needle tip contacted the lamina of T1 vertebra first, then it was walked off bone and into the epidural space using the loss of to air and fluoroscopic guidance to identify the epidural space. The correct needle position in the epidural space was verified with the injection of 1 mL of the water soluble contrast dye Isovue and observing an excellent epidurogram with the epidural spread of the dye, after negative aspiration for blood and CSF and in the absence of paresthesias. Again after negative aspiration, a 4 ml mixture containing 10 mg of Decadron and 3 ml of preservative free Normal Saline solution was injected and a washout of epidurogram was seen. Needle was withdrawn intact, skin was cleansed, and bandages were applied.
[2018-05-20 09:34] VITALS: RESP 16
[2018-05-20 09:48] VITALS: BP 97/59; PULSE 79
--- NOTE | 2018-05-20 15:33 | FL ---
Fluoroscopy HISTORY: Pain 5 seconds fluoroscopy time supplied to the referring clinician. 1 intraoperative C-arm image documen ts the procedure. See dictated report from anesthesia.
== END 2018-05-20 10:00 | disposition home or self-care (01) ==
LOC: ORPAIN 07:54
PROVIDERS: ATTEND Anesthesiology
DX: M47.22 Other spondylosis with radiculopathy, cervical region (principal); I10 Essential (primary) hypertension
CPT/HCPCS: 62321; J2250; J1100; J3010; Q9966

== ENCOUNTER → 2018-06-16 | Outpatient (CLI) | payer OTHER ==
[2018-06-16 13:42] VITALS: BP 127/88; PULSE 98; RESP 18
--- NOTE | 2018-06-16 13:59 | P.PAINPG ---
Subjective Progress Note Date: 06/16/18 This is a follow-up visit for this 42 years old female with history of severe neck pain with radiation to the right upper extremity, associated with numbness and tingling sensation, she is diagnosed with cervical radiculopathy, cervical disc herniation, cervical degenerative disc disease, cervical spondylosis with facet arthropathy, recently we have done cervical epidural steroid injections 2, and she reported that she had minimal, and short-term benefit after each one of them, she is done physical therapy, and she reports currently most of her pain in the cervical area, increased with hyperextension of the neck, she continued to have some weakness in her right upper extremity, she denies any change in bowel movement or urination, denies any fever or night sweats Objective - Vital Signs Vital signs: Vital Signs Temp Pulse 98 06/16/18 13:37 Resp 18 06/16/18 13:37 BP 127/88 06/16/18 13:37 Pulse Ox 98 06/16/18 13:37 Intake & Output 06/15/18 06/16/18 06/16/18 18:59 06:59 18:59 Weight 99.79 kg - Exam Physical Examinations : -Constitutiona : Cooperative , not in acute distress . -HEENT : nech ; supple , no Lymphadenopathy , normal thyroid size . eyes : no ptosis , no icterus, no photophobia . - musculoskeltal : Cervical Spine motor stregnth in the deltoid and biceps, 4/5 right side , 5/5 Left side motor stregnth biceps and the wrist extensors 4/5 right side ,5/5 left side . motor stregnth in the triceps muscle .4/5 Right side , 5/5 Left side positive cervical facet loading test . Spurling test negative bilaterally. Neck distraction test positive bilaterally. Assessment and Plan Plan: Assessment and plan= cervical radiculopathy, cervical disc herniation , cervical degenerative disc disease, cervical spondylosis with facet arthropathy Patient had short-term benefit and minimal benefit after cervical epidural steroid injections 2, currently she is complaining of severe neck pain Patient will be good candidate for diagnostic medial branch block cervical area C34, C45 ,C56 , bilaterally under fluoroscopy guidance , relief is possible to proceed with radiofrequency ablation of medial branches cervical, patient encouraged to do physical therapy plan to do a stress ball exercises and resistance exercises,, patient should continue to use Motrin when necessary Discussed with the patient option of referring to a spine surgeon/neurosurgery , patient rejected preferred to have any surgical interventions Time with Patient: Less than 30 PQRS Measure Charge Sheet Measure #130: Documentation of Current Meds in Medical Chart: Patient's medications documented in chart Measure #226: Tobacco Use: Screen & Cessation Intervention: Pt screened for tobacco use AND intervention given Measure #111: Pneumonia Vaccination: Pneumococcal vaccine NOT administered or previously given Measure #47: Advance Care Plan: Advance care planning discussed & documented, pt chose/unable to give Measure #412: Opioid Treatment Agreement: No documentation of signed opioid treatment agreement Measure #408: Opioid Therapy Follow-up Evaluation: Patient had NO f/u eval minimum every 3 months during opioid therapy Measure #317: Preventitive Care & Scrn High Bld Press & F/U: Normal blood pressure, f/u not required Measure #128: Body Mass Index (BMI) Screening & Follow-up: BMI documented ABOVE normal parameters - f/u documented Measure #131: Pain Assessment & Follow-up: Pain positive & plan documented, Follow-up scheduled Measure #431: Unhealthy Alcohol Use Preventative Care & Scrn: Patient not identified as an unhealthy alcohol user PQRS Narrative: Smoking Status Current every day smoker Do You Want the Pneumonia No Vaccine AT THIS TIME? Blood Pressure 127/88 Pain Intensity [Neck] 5 Hx Alcohol Use (MH) No Home Medications: Ambulatory Orders Buprenorphine HCl/Naloxone HCl [Suboxone 8 mg-2 mg Sl Film] 1 each SL TID 04/08/18 Furosemide [Lasix] 40 mg PO DAILY 04/08/18 Ibuprofen [Motrin] 800 - 2,400 mg PO DAILY 04/08/18 Loratadine 10 mg PO DAILY 04/08/18 Pantoprazole [Protonix] 40 mg PO DAILY 04/08/18 Potassium Chloride [Klor-Con 10] 10 meq PO DAILY 04/08/18 QUEtiapine [SEROquel] 100 mg PO HS 04/08/18 DULoxetine HCL [Cymbalta] 60 mg PO DAILY #30 cap 04/13/18 Metoprolol Succinate (ER) [Toprol XL] 50 mg PO DAILY #30 tab.er.24h 04/13/18 hydrOXYzine HCL [Atarax] 25 mg PO HS 04/29/18 Atorvastatin [Lipitor] 10 mg PO DAILY 06/16/18 Ergocalciferol (Vitamin D2) [Vitamin D2] 1 tab PO WEEKLY 06/16/18 Controlled Substance Measures - Controlled Substance Measures Is patient prescribed a controlled substance at discharge?: No
== END | disposition home or self-care (01) ==
LOC: PNWHC3 13:27
PROVIDERS: ATTEND Specialist
DX: M50.10 Cervical disc disorder with radiculopathy, unspecified cervical region (principal); M47.22 Other spondylosis with radiculopathy, cervical region; M46.82 Other specified inflammatory spondylopathies, cervical region; F17.200 Nicotine dependence, unspecified, uncomplicated; Z79.1 Long term (current) use of non-steroidal anti-inflammatories (NSAID); Z79.899 Other long term (current) drug therapy
CPT/HCPCS: 99211

== ENCOUNTER 2018-06-24 05:59 | Day surgery (SDC) | payer OTHER ==
[2018-06-22 11:04] VITALS: BMI 37.9
[2018-06-24 06:23] VITALS: TEMP 98.1
[2018-06-24] MEDS ORDERED: LACTATED RINGERS 1,000 ML IV ONE (06:29)
[2018-06-24] MEDS ORDERED: LIDOCAINE 1% 20 ML VIAL (10MG/ML) FOR IV START INTRADERMA ONE (06:29)
[2018-06-24] MEDS ORDERED: LACTATED RINGERS 1,000 ML IV SCH (07:00)
[2018-06-24] MEDS ORDERED: IV FLUID CONTINUATION 1,000 ML IV ONE (07:21)
[2018-06-24 07:25] VITALS: PULSE 90
[2018-06-24 07:32] VITALS: BP 109/68; RESP 18
--- NOTE | 2018-06-24 08:18 | P.PCN ---
Date of Procedure: 06/24/18 Surgeon: Mendoza Cuellar Description of Procedure: PREOPERATIVE DIAGNOSIS: Cervical Spondylosis with Facet Arthropathy.without myelopathy POSTOPERATIVE DIAGNOSIS: Cervical Spondylosis Facet Arthropathy. Without myelopathy PROCEDURES: Diagnostic , bilateral C3, C4, C5 medial branch blocks, with fluoroscopic guidance ANESTHESIA: Local with 1% lidocaine; IV sedation with Versed. EBL: Minimal PROCEDURE INDICATION: The patient with neck pain secondary to cervical arthropathy unresponsive to more conservative treatments. PROCEDURE DESCRIPTION / TECHNIQUE: The patient was seen and identified in the preoperative area. Risks, benefits, complications, and alternatives were discussed with the patient, the patient agreed to proceed with the procedure and signed the consent. IV was started. Vital signs remained stable throughout the procedure. Patient was taken to the OR and time out was completed. The patient was placed in the prone position on the procedure table. A pillow was placed under the patients chest to increase the cervical interlaminar space. The cervical area was prepped and draped in the usual sterile fashion. Critical pause was taken. Vital signs were closely monitored during the procedure. Conscious sedation was used during the procedure to decrease patients anxiety. Using cross-table lateral fluoroscopy, the centroid of the trapezoid of the right side of the first level was identified, marked, and localized with 1% lidocaine 1 ml at each level for skin and subcutaneous infiltrations . Subsequently, a 25 G spinal needle was advanced guided by fluoroscopy to the centroid of the trapezoid . [place] tip position was confirmed at the centroid of the trapezoids anteroposterior fluoroscopy. Subsequently, 1 mL of 0.25% bupivacaine with 10 mg of Depo-Medrol was injected at each level. COMPLICATIONS: No acute complications. COMMENTS: DISPOSITION / PLANS: The patient was placed in a supine position and transferred to the recovery area in a stable condition for observation and was discharged from the recovery room after meeting discharge criteria. Home discharge instructions given to the patient by the staff. The patient was reexamined prior to discharge.
--- NOTE | 2018-06-24 10:41 | FL ---
Fluoroscopy HISTORY: Pain 12 seconds fluoroscopy time supplied to the referring clinician. 2 intraoperative C-arm images docum ent the procedure. See dictated report from anesthesia.
== END 2018-06-24 07:50 | disposition home or self-care (01) ==
LOC: ORPAIN 05:59
PROVIDERS: ATTEND Pain Medicine Pain Medicine
DX: M47.22 Other spondylosis with radiculopathy, cervical region (principal); M50.10 Cervical disc disorder with radiculopathy, unspecified cervical region; F17.200 Nicotine dependence, unspecified, uncomplicated; Z79.1 Long term (current) use of non-steroidal anti-inflammatories (NSAID); Z79.891 Long term (current) use of opiate analgesic; Z79.899 Other long term (current) drug therapy
CPT/HCPCS: 64490; 64491; 64492; J2250; J1030; J3010; 99152

== ENCOUNTER 2018-07-08 08:55 | Day surgery (SDC) | payer OTHER ==
[2018-07-06 15:45] VITALS: BMI 37.9
[~2018-07-08 08:55] MED LIST changes: +LACTATED RINGERS 1,000 ML IV SCH; -SODIUM CHLORIDE 0.9% 500 ML 500 ML IV SCH
[2018-07-08] MEDS ORDERED: LIDOCAINE 1% 20 ML VIAL (10MG/ML) FOR IV START INTRADERMA ONE (09:15)
[2018-07-08 09:20] VITALS: TEMP 97.3
[2018-07-08] MEDS ORDERED: IV FLUID CONTINUATION 1,000 ML IV ONE ×2 (09:51)
--- NOTE | 2018-07-08 09:52 | P.PCN ---
Date of Procedure: 07/08/18 Procedure(s) Performed: PREOPERATIVE DIAGNOSIS: 1-Cervical Spondylosis with Facet Arthropathy.without myelopathy. 2-cervical degenerative disc disease POSTOPERATIVE DIAGNOSIS: Cervical Spondylosis with Facet Arthropathy Without myelopathy. 2-cervical degenerative disc disease. PROCEDURES: Diagnostic bilateral C3 , C4 , C5, medial branch blocks, with fluoroscopic guidance # 2nd ANESTHESIA: Local with 1% lidocaine; moderate sedation with Versed. 2 mg , and fentanyl 50 micrograms EBL: Minimal PROCEDURE INDICATION: The patient with neck pain secondary to cervical arthropathy unresponsive to more conservative treatments. PROCEDURE DESCRIPTION / TECHNIQUE: The patient was seen and identified in the preoperative area. Risks, benefits, complications, and alternatives were discussed with the patient, the patient agreed to proceed with the procedure and signed the consent. IV was started. Vital signs remained stable throughout the procedure. Patient was taken to the OR and time out was completed. The patient was placed in the prone position on the procedure table. A pillow was placed under the patients chest to increase the cervical interlaminar space. The cervical area was prepped and draped in the usual sterile fashion. Critical pause was taken. Vital signs were closely monitored during the procedure. Conscious sedation was used during the procedure to decrease patients anxiety. Using cross-table lateral fluoroscopy, the centroid of the trapezoid of right C3, C4 , C5 was identified, marked, and localized with 1% lidocaine 1 ml at each level for skin and Sub Q infiltrations . Subsequently, a 22 G 3 spinal needle was advanced guided by fluoroscopy to the centroid of the trapezoid of Right C3, C4 , C5, C6 . [place] tip position was confirmed at the centroid of the trapezoids of Right C3 , C4 , C5 with anteroposterior fluoroscopy. Subsequently, 2 ml of preservative-free Ropivacaine 0.5% mixed with Depo- Medrol 20 mg and half ml of the mixture was injected after negative aspiration for blood and CSF. [place] was then removed intact the same procedure was repeated at the left C3 , C4, C5, levels. COMPLICATIONS: No acute complications. DISPOSITION / PLANS: The patient was placed in a supine position and transferred to the recovery area in a stable condition for observation and was discharged from the recovery room after meeting discharge criteria. Home discharge instructions given to the patient by the staff. The patient was reexamined prior to discharge. The patient will schedule a follow up in the clinic in 2-4 weeks.
--- NOTE | 2018-07-08 10:00 | FL ---
EXAMINATION TYPE: FL guided pain mgmt statistic DATE OF EXAM: 07/08/2018 HISTORY: Flouroscopy time 38 seconds of fluoroscopy provided. IMPRESSION: 1. Fluoroscopy time.
[2018-07-08 10:36] VITALS: BP 108/62; PULSE 70; RESP 18
== END 2018-07-08 10:30 | disposition home or self-care (01) ==
LOC: ORPAIN 08:55
PROVIDERS: ATTEND Specialist
DX: M47.812 Spondylosis without myelopathy or radiculopathy, cervical region (principal); M50.30 Other cervical disc degeneration, unspecified cervical region; I10 Essential (primary) hypertension; J45.909 Unspecified asthma, uncomplicated; F17.200 Nicotine dependence, unspecified, uncomplicated; F41.9 Anxiety disorder, unspecified; F32.9 Major depressive disorder, single episode, unspecified
CPT/HCPCS: 64490; 64491; J2250; J1030; J3010; 99152; 99153

== ENCOUNTER → 2018-07-21 | Outpatient (CLI) | payer OTHER ==
[2018-07-21 10:39] VITALS: BP 128/80; PULSE 106; RESP 18
--- NOTE | 2018-07-21 10:59 | P.PN ---
Subjective Progress Note Date: 07/21/18 Charlotte is a 42-year-old female presents today for a follow-up. She recently had cervical medial branch blocks in the cervical epidural steroid injection. She reports that her pain today is 2 out of 10. She reports her neck pain is significantly better than has been in the past. She reports the medial branch block significantly improved her pain in the neck. The epidural steroid injection eliminated her because symptoms down her right arm. She was having a lot of numbness and tingling in the right arm and in the hand which is now improved. He uses [id number] Motrin for analgesia. She is requesting to have a left-sided radiofrequency ablation since she had excellent relief from the medial branch blocks. She denies any new numbness tingling or weakness from the injections that we have been repeated recently. Denies any bowel or bladder incontinence. Denies use of any blood thinning medication Objective - Vital Signs Vital signs: Vital Signs Temp Pulse 106 H 07/21/18 10:36 Resp 18 07/21/18 10:36 BP 128/80 07/21/18 10:36 Pulse Ox 97 07/21/18 10:36 Intake & Output 07/20/18 07/21/18 07/21/18 18:59 06:59 18:59 Weight 99.79 kg - Exam PHYSICAL EXAM: Constitutional: Awake and alert no distress, obese Cardiovascular exam: Regular rate, no lower extremity edema, palpable pulses bilaterally Respiratory exam: No audible wheezing, no accessory muscle usage Abdominal exam: Soft nontender Muscular skeletal exam: - Cervical spine: Nontender to palpation bilaterally. Range of motion is slightly limited with side bending Spurling is negative bilateral. Facet loading is positive on the left side today, Payan's is negative - Lumbar spine: Preserved lumbar lordosis. No changes in skin. Nontender palpation bilateral. Patient has full range of motion in flexion and extension as well as lateral sidebending. Facet loading is negative. Neuro exam: Normal sensation bilateral upper and lower extremities. Deep tendon reflexes are 2+ bilaterally. Payan's is negative Psychiatric exam: Cooperative, good insight Assessment and Plan Assessment: Cervical spondylosis without myelopathy Cervical radiculopathy Plan: I've discussed the risks, benefits, alternatives to the procedure with the patient today. I have answered all her questions. She like to move forward with a left-sided cervical radiofrequency ablation at C3, C4, C5 with sedation. We'll schedule to have that done as soon as possible
== END | disposition home or self-care (01) ==
LOC: PNWHC3 10:27
PROVIDERS: ATTEND Hospitalist
DX: M47.22 Other spondylosis with radiculopathy, cervical region (principal); Z79.1 Long term (current) use of non-steroidal anti-inflammatories (NSAID)
CPT/HCPCS: 99211

== ENCOUNTER 2018-08-05 09:55 | Day surgery (SDC) | payer OTHER ==
[2018-08-03 11:52] VITALS: BMI 40.4
[2018-08-05 10:16] VITALS: RESP 16; TEMP 98.5
[2018-08-05] MEDS ORDERED: LACTATED RINGERS 1,000 ML IV ONE (10:20)
[2018-08-05] MEDS ORDERED: LIDOCAINE 1% 20 ML VIAL (10MG/ML) FOR IV START INTRADERMA ONE (10:21)
--- NOTE | 2018-08-05 10:30 | P.PCN ---
Date of Procedure: 08/05/18 Description of Procedure: PREOPERATIVE DIAGNOSIS: Cervical spondylosis without myelopathy POSTOPERATIVE DIAGNOSIS: Cervical spondylosis without myelopathy PROCEDURES: Radiofrequency thermocoagulation of the left C3, C4, C5 ANESTHESIA: Local with 1% lidocaine; IV sedation with fentanyl and Versed. EBL: Minimal PROCEDURE INDICATION: The patient with neck pain secondary to cervical arthropathy who had more than 50% relief of her pain with previous diagnostic cervical medial branch block. PROCEDURE DESCRIPTION / TECHNIQUE: The patient was seen and identified in the preoperative area. Risks, benefits, complications, and alternatives were discussed with the patient, the patient agreed to proceed with the procedure and signed the consent. IV was started. Vital signs remained stable throughout the procedure. Patient was taken to the OR and time out was completed. The patient was placed in the prone position on the procedure table. A pillow was placed under the patient's chest to increase the cervical interlaminar space. The cervical area was prepped and draped in the usual sterile fashion. Critical pause was taken. Vital signs were closely monitored during the procedure. Conscious sedation was used during the procedure to decrease patient's anxiety. Using cross-table lateral fluoroscopy, the centroid of the trapezoid of C3, C4, C5 were identified, marked, and localized with 1% lidocaine. Subsequently, a 20 [id number] radiofrequency cannula with a 10-mm active tip was advanced guided by fluoroscopy to the centroid of the trapezoid of C3, C4, C5. Needle tip position was confirmed at the centroid of the trapezoids of C3, C4, C5 with anteroposterior fluoroscopy. Each site then underwent sensory testing at 50 Hz and 0 to 1 volt and motor testing at 2 Hz and 0 to 3 volt with local stimulation, but no radicular symptoms down the arm. Thereafter the targeted sites underwent radiofrequency thermocoagulation at 80 degrees celsius for 90 seconds after injecting 0.5 ml of PF lidocaine 1%. After thermocoagulation of the targeted sites, 1 ml of 1% lidocaine was then injected after negative aspiration of CSF and blood and with no paresthesias. Cannulas were retracted while injecting lidocaine 1% until the needle is out. Skin was cleansed and bandages were applied. COMPLICATIONS: No acute complications. DISPOSITION / PLANS: The patient was placed in a supine position and transferred to the recovery area in a stable condition for observation and was discharged from the recovery room after meeting discharge criteria. Home discharge instructions given to the patient by the staff. The patient was reexamined prior to discharge. The patient will schedule a follow up as direct ed.
[2018-08-05 11:17] VITALS: BP 88/58; PULSE 93
--- NOTE | 2018-08-05 14:19 | FL ---
Fluoroscopy HISTORY: Pain 16 seconds fluoroscopy time supplied to the referring clinician. 1 intraoperative C-arm images docum ent the procedure. See dictated report from anesthesia.
== END 2018-08-05 11:28 | disposition home or self-care (01) ==
LOC: ORPAIN 09:55
PROVIDERS: ATTEND Hospitalist
DX: M47.812 Spondylosis without myelopathy or radiculopathy, cervical region (principal)
CPT/HCPCS: 64633; 64634; J2250; J3010; 99152

== ENCOUNTER 2018-08-19 09:29 | Day surgery (SDC) | payer OTHER ==
[2018-08-17 12:33] VITALS: BMI 41.5
[2018-08-19 09:48] VITALS: RESP 16; TEMP 97.7
[2018-08-19 09:48] LABS: Glucose,Whole Blood 111 mg/dL (75-99)
--- NOTE | 2018-08-19 10:24 | P.PCN ---
Date of Procedure: 08/19/18 Surgeon: Marianne Ventura Pathology: none sent Condition: stable Disposition: PACU Description of Procedure: PREOPERATIVE DIAGNOSIS: Cervical spondylosis with Facet Arthropathy without myelopathy.Morbid obesity POSTOPERATIVE DIAGNOSIS: Cervical spondylosis with Facet Arthropathy without myelopathy.Morbid Obesity PROCEDURES: Radiofrequency thermocoagulation Right C3, C4 medial branch with Fluroscopy [place] ANESTHESIA: Local with 1% lidocaine; IV sedation with fentanyl and Versed. EBL: Minimal PROCEDURE INDICATION: The patient with neck pain secondary to cervical arthropathy who had more than 50% relief of her pain with previous diagnostic cervical medial branch block. PROCEDURE DESCRIPTION / TECHNIQUE: The patient was seen and identified in the preoperative area. Risks, benefits, complications, and alternatives were discussed with the patient, the patient agreed to proceed with the procedure and signed the consent. IV was started. Vital signs remained stable throughout the procedure. Patient was taken to the OR and time out was completed. The patient was placed in the prone position on the procedure table. A pillow was placed under the patients chest to increase the cervical interlaminar space. The cervical area was prepped and draped in the usual sterile fashion. Critical pause was taken. Vital signs were closely monitored during the procedure. Conscious sedation was used during the procedure to decrease patients anxiety. Using cross-table lateral fluoroscopy, the center of the trapezoid-shaped cervical pillars of C3,C4 were identified, marked, and localized with 1% lidocaine. I was not able to identify the C5 vertebral body due to the patient's body habitus. Subsequently, a 20 [id number] radiofrequency cannula with a 10-mm active tip was advanced guided by fluoroscopy to the target points mentioned above. . Each site then underwent motor testing at 2 Hz and 0 to 3 volt with local stimulation, but no radicular symptoms down the arm. Thereafter C3 ,C4 sites underwent radiofrequency thermocoagulation at 80 degrees celsius for 90 seconds after injecting 0.5 ml of PF lidocaine 1%. After thermocoagulation, 1 ml of the block solution containing Dexamethasone 10 mg and 2 mL of preservative-free normal saline was injected at the C3,C4, and C5 levels after negative aspiration of CSF and blood and with no paresthesias. Cannulas were retracted. Skin was cleansed and bandages were applied. COMPLICATIONS: No acute complications. COMMENTS: DISPOSITION / PLANS: The patient was placed in a supine position and transferred to the recovery area in a stable condition for observation and was discharged from the recovery room after meeting discharge criteria. Home discharge instructions given to the patient by the staff. The patient was reexamined prior to discharge.
[2018-08-19] MEDS ORDERED: IV FLUID CONTINUATION 1,000 ML IV ONE ×2 (10:30)
--- NOTE | 2018-08-19 11:13 | FL ---
Fluoroscopy HISTORY: Pain 25 seconds fluoroscopy time supplied to the referring clinician. 2 intraoperative C-arm images docum ent the procedure. See dictated report from anesthesia.
[2018-08-19 11:50] VITALS: BP 122/72; PULSE 70
== END 2018-08-19 11:40 | disposition home or self-care (01) ==
LOC: ORPAIN 09:29
PROVIDERS: ATTEND Anesthesiology
DX: M47.22 Other spondylosis with radiculopathy, cervical region (principal); E66.01 Morbid (severe) obesity due to excess calories; Z68.41 Body mass index [BMI] 40.0-44.9, adult
CPT/HCPCS: 81025; 64633; J2250; J1100; J3010; 64634; 99152

== ENCOUNTER → 2018-09-07 | Outpatient (CLI) | payer OTHER ==
--- NOTE | 2018-09-07 15:08 | US ---
EXAMINATION TYPE: US venous doppler duplex LE LT DATE OF EXAM: 09/07/2018 2:33 PM COMPARISON: NONE CLINICAL HISTORY: 43-year-old female M79.662 Pain Left Lower Limb R22.42 Swelling. Swelling left lowe r leg and foot x months; patient stated has left knee pain with prior meniscus problems SIDE PERFORMED: Left TECHNIQUE: The lower extremity deep venous system is examined utilizing real time linear array sonog juan with graded compression, doppler sonography and color-flow sonography. FINDINGS: VESSELS IMAGED: Common Femoral Vein Deep Femoral Vein Greater Saphenous Vein * Femoral Vein - dual Femoral Vein noted inferiorly on Sagittal color flow Popliteal Vein Small Saphenous Vein * Proximal Calf Veins Posterior tibial veins (* superficial vessels) Left Leg: Negative for DVT. Subcutaneous edema within the medial calf soft tissues. IMPRESSION: No evidence for DVT within the left lower extremity. Soft tissue swelling involving the medial aspect of the calf.
== END | disposition home or self-care (01) ==
LOC: RADUSWWP 14:10
PROVIDERS: ATTEND Internal Medicine
DX: M79.89 Other specified soft tissue disorders (principal)

== ENCOUNTER → 2018-09-16 | Outpatient (CLI) | payer OTHER ==
[2018-09-16 10:38] VITALS: BP 133/83; PULSE 106; RESP 18
--- NOTE | 2018-09-16 10:54 | P.PAINPG ---
Subjective Progress Note Date: 09/16/18 This is a follow-up visit for this 43 years old female with a chronic history of severe neck pain ,diagnosed with cervical spondylosis with cervical facet arthropathy, recently we have done radiofrequency ablation of the medial branch cervical area C3, C4, C5, and she gets excellent pain relief, she reported that her neck pain currently is 0/10, she denies any motor or sensory deficit in the upper or lower extremity, currently she is complaining of severe left knee pain mostly at the lateral aspect of the left knee, increased with walking or going upstairs or downstairs Objective - Vital Signs Vital signs: Vital Signs Temp Pulse 106 H 09/16/18 10:34 Resp 18 09/16/18 10:34 BP 133/83 09/16/18 10:34 Pulse Ox 96 09/16/18 10:34 Intake & Output 09/15/18 09/16/18 09/16/18 18:59 06:59 18:59 Weight 113.398 kg - Exam Physical Examinations : -Constitutiona : Cooperative , not in acute distress . -HEENT : nech : supple , no Lymphadenopathy , normal thyroid size . eyes : no ptosis , no icterus, no photophobia . - neurologic : Cranial nerve II to XII intact , no focal neurological deffecit . -psychatric : alert , oriented X 3 , appropriate affect , intact judgment and insight . -Lymphatic : no Lymphadenopathy . - musculoskeltal : Cervical Spine= neck full range of motion Lumber spine moter stegnth lower extremities ,thigh and legs 5/5 Right side , 5/5 Left side Tenderness over the lateral aspect of the left knee, flexion and extension of the left knee associated with knee pain The joints for range of motion bilaterally, no erythema, no discharge Assessment and Plan Plan: Assessment and plan=1-cervical spondylosis with cervical facet arthropathy,Pain improved after radiofrequency ablation of the median branch cervical area. 2-left knee pain secondary to osteoarthritis versus left lateral meniscus tear. We will schedule patient to have left knee steroid injection x2 , if she continued to have pain after the steroid injections then we will refer her to orthopedic surgeon for evaluation Time with Patient: Less than 30 PQRS Measure Charge Sheet Measure #130: Documentation of Current Meds in Medical Chart: Patient's medications documented in chart Measure #226: Tobacco Use: Screen & Cessation Intervention: Pt screened for tobacco use AND intervention given Measure #111: Pneumonia Vaccination: Pneumococcal vaccine NOT administered or previously given Measure #47: Advance Care Plan: Advance care planning discussed & documented, pt chose/unable to give Measure #412: Opioid Treatment Agreement: No documentation of signed opioid treatment agreement Measure #408: Opioid Therapy Follow-up Evaluation: Patient had NO f/u eval minimum every 3 months during opioid therapy Measure #317: Preventitive Care & Scrn High Bld Press & F/U: Normal blood pressure, f/u not required Measure #128: Body Mass Index (BMI) Screening & Follow-up: BMI documented ABOVE normal parameters - f/u documented Measure #131: Pain Assessment & Follow-up: Pain positive & plan documented, F ollow-up scheduled Measure #431: Unhealthy Alcohol Use Preventative Care & Scrn: Patient not identified as an unhealthy alcohol user PQRS Narrative: Smoking Status Current every day smoker Blood Pressure 133/83 Pain Intensity [Bilateral 0 Posterior Neck] Scale Used Numeric (1 - 10) Hx Alcohol Use (MH) No Home Medications: Ambulatory Orders Buprenorphine HCl/Naloxone HCl [Suboxone 8 mg-2 mg Sl Film] 1 each SL TID 04/08/18 Furosemide [Lasix] 40 mg PO DAILY 04/08/18 Ibuprofen [Motrin] 800 mg PO TID PRN 04/08/18 Loratadine 10 mg PO DAILY 04/08/18 Pantoprazole [Protonix] 40 mg PO DAILY 04/08/18 Potassium Chloride [Klor-Con 10] 10 meq PO DAILY 04/08/18 DULoxetine HCL [Cymbalta] 60 mg PO DAILY #30 cap 04/13/18 Metoprolol Succinate (ER) [Toprol XL] 50 mg PO DAILY #30 tab.er.24h 04/13/18 hydrOXYzine HCL [Atarax] 25 mg PO HS 04/29/18 Atorvastatin [Lipitor] 10 mg PO DAILY 06/16/18 Ergocalciferol (Vitamin D2) [Vitamin D2] 50,000 units PO TU 06/16/18 busPIRone HCl [Buspar] 10 mg PO TID PRN 07/06/18 QUEtiapine [SEROquel] 200 mg PO DAILY 07/21/18 Controlled Substance Measures - Controlled Substance Measures Is patient prescribed a controlled substance at discharge?: No
== END | disposition home or self-care (01) ==
LOC: PNWHC3 10:06
PROVIDERS: ATTEND Specialist
DX: G89.29 Other chronic pain (principal); M47.812 Spondylosis without myelopathy or radiculopathy, cervical region; M46.92 Unspecified inflammatory spondylopathy, cervical region; M25.562 Pain in left knee; F17.200 Nicotine dependence, unspecified, uncomplicated; Z98.890 Other specified postprocedural states; Z79.899 Other long term (current) drug therapy
CPT/HCPCS: 99211

== ENCOUNTER → 2018-09-28 | Day surgery (SDC) | payer OTHER ==
[2018-09-23 15:13] VITALS: BMI 43.2
[2018-09-28 08:24] VITALS: RESP 16; TEMP 97.5
--- NOTE | 2018-09-28 09:44 | P.PCN ---
Date of Procedure: 09/28/18 Procedure(s) Performed: Procedure Note PROCEDURE PERFORMED: Left intra-articular knee joint injection. PREOPERATIVE DIAGNOSIS: Left knee pain POSTOPERATIVE DIAGNOSIS: same ATTENDING PHYSICIAN: Asim Morrow M.D. ANESTHESIA: Local infiltration of 2mL of 1% lidocaine INJECTATE: 5mL total solution, containing 4mL of 1% lidocaine and 1mL of 40mg/mL Kenalog SEDATION WAS NOT PROVIDED Ultrasound was used for the procedure and images were printed and saved to radiology chart. ESTIMATED BLOOD LOSS: None. COMPLICATIONS: None. A timeout was completed, verifying correct patient, procedure, site, positioning, and implants or special equipment. INDICATIONS FOR PROCEDURE: Patient has a clinical picture of knee pain and osteoarthritis of the above- mentioned knee joint(s). PROCEDURE AND FINDINGS: The patient was seen in the preoperative holding area. After verification of informed consent, availability of driver messenger and n.p.o. status, the patient was brought to the procedure unit and placed on the bed with bilateral knees flexed using a pillow. Monitors were applied consisting of EKG, pulse oximetry, and noninvasive blood pressure cuff. The patient was monitored throughout the case. The area over the left knee(s) was then prepped in the usual sterile fashion. After identifying a point on the inferolateral pole of the femur by palpation, the ultrasound machine was prepped into the field and used for needle guidance. Using continuous ultrasound guidance, a 22-gauge 3-inch Pajunk needle was advanced easily in to the lateral portion of the knee joint. Aspiration for intra-vascular placement was negative. At this point, the above listed injectate was delivered in to the joint without resistance. The needle was visualized throughout the entire procedure using ultrasound. The needle was then withdrawn. The patient tolerated the procedure well, with no apparent complications. The patient was then taken to the postop holding area, where they remained hemodynamically stable and was observed for 20-30 mins. After instructions were given, the patient was discharged home in stable condition with a responsible adult.
[2018-09-28 09:52] VITALS: PULSE 91
[2018-09-28 10:03] VITALS: BP 111/79
== END | disposition home or self-care (01) ==
LOC: ORPAIN 07:51
PROVIDERS: ATTEND Anesthesiology
DX: M17.12 Unilateral primary osteoarthritis, left knee (principal)
CPT/HCPCS: 20611; J2001; 20610; 99152

== ENCOUNTER → 2018-10-26 | Outpatient (CLI) | payer OTHER ==
[2018-10-26 14:09] VITALS: BP 110/73; PULSE 79; RESP 16
--- NOTE | 2018-10-26 14:38 | P.PAINPG ---
Subjective Progress Note Date: 10/26/18 This is a follow-up visit for this 43 years old female with a chronic history of left knee pain status post left knee steroid injection done a few weeks ago, she reported that her pain improved significantly after the left knee injection, she continued to use Motrin when necessary she denies any side effects of the medication she denies any motor or sensory deficit, she is satisfied with the result of the treatment Objective - Vital Signs Vital signs: Vital Signs Temp Pulse 79 10/26/18 14:03 Resp 16 10/26/18 14:03 BP 110/73 10/26/18 14:03 Pulse Ox Intake & Output 10/25/18 10/26/18 10/26/18 18:59 06:59 18:59 Weight 117.934 kg - Constitutional Constitutional Comment(s): Physical Examinations : -Constitutiona : Cooperative , not in acute distress . -HEENT : nech : supple , no Lymphadenopathy , normal thyroid size . eyes : no ptosis , no icterus, no photophobia . - neurologic : Cranial nerve II to XII intact , no focal neurological deffecit . -psychatric : alert , oriented X 3 , appropriate affect , intact judgment and insight . -Lymphatic : no Lymphadenopathy . - musculoskeltal : Lumber spine moter stegnth lower extremities ,thigh and legs 5/5 Right side , 5/5 Left side Assessment and Plan Plan: Assessment and plan= left knee arthalgia Left knee pain improved after left knee steroid injection done a few weeks ago. Patient will follow up in the pain clinic , when necessary Time with Patient: Less than 30 PQRS Measure Charge Sheet Measure #130: Documentation of Current Meds in Medical Chart: Patient's medications documented in chart Measure #226: Tobacco Use: Screen & Cessation Intervention: Pt screened for tobacco use AND intervention given Measure #111: Pneumonia Vaccination: Pneumococcal vaccine NOT administered or previously given Measure #47: Advance Care Plan: Advance care planning discussed & documented, pt chose/unable to give Measure #412: Opioid Treatment Agreement: No documentation of signed opioid treatment agreement Measure #408: Opioid Therapy Follow-up Evaluation: Patient had NO f/u eval minimum every 3 months during opioid therapy Measure #317: Preventitive Care & Scrn High Bld Press & F/U: Normal blood pressure, f/u not required Measure #128: Body Mass Index (BMI) Screening & Follow-up: BMI documented ABOVE normal parameters - f/u documented Measure #131: Pain Assessment & Follow-up: Pain positive & plan documented, Follow-up scheduled Measure #431: Unhealthy Alcohol Use Preventative Care & Scrn: Patient not identified as an unhealthy alcohol user PQRS Narrative: Smoking Status Current every day smoker Blood Pressure 110/73 Pain Intensity [Left Knee] 2 Scale Used Numeric (1 - 10) Hx Alcohol Use (MH) No Home Medications: Ambulatory Orders Buprenorphine HCl/Naloxone HCl [Suboxone 8 mg-2 mg Sl Film] 1 each SL TID 04/08/18 Furosemide [Lasix] 40 mg PO DAILY 04/08/18 Ibuprofen [Motrin] 800 mg PO TID PRN 04/08/18 Loratadine 10 mg PO DAILY 04/08/18 Pantoprazole [Protonix] 40 mg PO DAILY 04/08/18 Potassium Chloride [Klor-Con 10] 10 meq PO DAILY 04/08/18 DULoxetine HCL [Cymbalta] 60 mg PO DAILY #30 cap 04/13/18 Metoprolol Succinate (ER) [Toprol XL] 50 mg PO DAILY #30 tab.er.24h 04/13/18 hydrOXYzine HCL [Atarax] 25 mg PO HS 04/29/18 Atorvastatin [Lipitor] 10 mg PO HS 06/16/18 Ergocalciferol (Vitamin D2) [Vitamin D2] 50,000 units PO TU 06/16/18 busPIRone HCl [Buspar] 10 mg PO TID PRN 07/06/18 QUEtiapine [SEROquel] 200 mg PO HS 07/21/18 Controlled Substance Measures - Controlled Substance Measures Is patient prescribed a controlled substance at discharge?: No
== END | disposition home or self-care (01) ==
LOC: PNWHC3 13:19
PROVIDERS: ATTEND Specialist
DX: G89.29 Other chronic pain (principal); M25.562 Pain in left knee; F17.200 Nicotine dependence, unspecified, uncomplicated; Z79.1 Long term (current) use of non-steroidal anti-inflammatories (NSAID); Z79.891 Long term (current) use of opiate analgesic; Z79.899 Other long term (current) drug therapy
CPT/HCPCS: 99211

== ENCOUNTER → 2018-11-19 | Outpatient (CLI) | payer OTHER ==
[2018-11-19 14:14] VITALS: BP 137/88; PULSE 90; RESP 16
--- NOTE | 2018-11-19 15:12 | P.PAINPG ---
Subjective Progress Note Date: 11/19/18 Mr. Crowley is a 43-year-old who we follow for cervical facet genic pain, knee pain, some tingling in her hands. She today returns for follow-up because she started having some pain in her neck again. Her RFA was last done 3 months ago over cervical spine with good relief. Of note she does have new left hand numbness. She did complain of right hand numbness in the past but this had left hand numbness is new. The numbness is only at her wrist to her fingers in the first 3 fingers. She has never been diagnosed with carpal tunnel in the past. She states that her previous cervical epidural did help with the finger numbness and tingling. Also in the past physical therapy has helped her neck pain, and she is interested in going to physical therapy again. Objective - Vital Signs Vital signs: Vital Signs Temp Pulse 90 11/19/18 14:07 Resp 16 11/19/18 14:07 BP 137/88 11/19/18 14:07 Pulse Ox 95 11/19/18 14:07 Intake & Output 11/18/18 11/19/18 11/19/18 18:59 06:59 18:59 Weight 117.934 kg - Exam Vital Signs: Reviewed in EMR GENERAL: Well appearing, in no acute distress, PSYCH: Mood and affect is appropriate. Awake, alert, and oriented SKIN: Skin color, texture, turgor normal, no rashes or lesions HEENT: Normocephalic, atraumatic. EOM intact CV: No pedal edema RESP: Respirations are unlabored, no audible wheezing GI: Abdomen non-distended MUSCULOSKELETAL: Bilateral upper and lower extremity strength is normal and symmetric. No atrophy or tone abnormalities are noted. Neck: Positive to palpation over cervical paraspinals. Positive to pain with neck flexion, extension, or lateral flexion. No obvious deformity or signs of trauma. Normal cervical lordotic curve and normal cervical spine range of motion Extremities: Peripheral joint ROM is full and pain free without obvious instability or laxity in all four extremities. No edema or skin discolorations noted. Gait: Gait is anantalgic NEUR: Bilateral upper and lower extremity coordination and muscle stretch reflexes are physiologic and symmetric. No loss of sensation is noted. Cranial nerves are grossly intact. Assessment and Plan Assessment: Assessment: 1. Cervical spondylosis 2. Potential cervical radicular pain, versus bilateral carpal tunnel. 3. Left knee arthritis. 4. Obesity Plan: 1. Explanation: Spoke to her about the different causes of pain, however tingling in her fingers could be related to carpal tunnel disease versus cervical radicular pain. 2. Opioid agreement: None 3. Counseling: The patient was counseled extensively on BODY MASS INDEX, EXERCISE. Specifically, the patient was instructed regarding the importance of weight control, and exercise in the context of both chronic pain and overall health. 4. Procedures: Done at this time, because she has new tingling in her left hand I like to evaluate this first. Furthermore she does have good benefit of phys ical therapy. However at her next visit would consider cervical epidural steroid injection versus repeat lumbar cervical RFA, however this may have to be delayed. She had cervical RFA 3 months ago 5. Consultations: Physical therapy she has had good relief with this in the past. 6. Investigations: Cervical MRI given her new left hand tingling 7. Medications: None prescribed 8. Disposition: In 10 weeks after she has completed her physical therapy and MRI , PQRS Measure Charge Sheet Measure #226: Tobacco Use: Screen & Cessation Intervention: Pt screened for tobacco use AND intervention given Measure #111: Pneumonia Vaccination: Pneumococcal vaccine NOT administered or previously given Measure #47: Advance Care Plan: Advance care planning discussed & documented, pt chose/unable to give Measure #131: Pain Assessment & Follow-up: Pain positive & plan documented, Follow-up scheduled Measure #431: Unhealthy Alcohol Use Preventative Care & Scrn: Patient not identified as an unhealthy alcohol user PQRS Narrative: Smoking Status Current every day smoker Blood Pressure 137/88 Pain Intensity [Bilateral 8 Posterior Neck] Hx Alcohol Use (MH) No Home Medications: Ambulatory Orders Buprenorphine HCl/Naloxone HCl [Suboxone 8 mg-2 mg Sl Film] 1 each SL TID 04/08/18 Furosemide [Lasix] 40 mg PO DAILY 04/08/18 Ibuprofen [Motrin] 800 mg PO TID PRN 04/08/18 Loratadine 10 mg PO DAILY 04/08/18 Pantoprazole [Protonix] 40 mg PO DAILY 04/08/18 Potassium Chloride [Klor-Con 10] 10 meq PO DAILY 04/08/18 DULoxetine HCL [Cymbalta] 60 mg PO DAILY #30 cap 04/13/18 Metoprolol Succinate (ER) [Toprol XL] 50 mg PO DAILY #30 tab.er.24h 04/13/18 hydrOXYzine HCL [Atarax] 25 mg PO HS 04/29/18 Atorvastatin [Lipitor] 10 mg PO HS 06/16/18 Ergocalciferol (Vitamin D2) [Vitamin D2] 50,000 units PO TU 06/16/18 busPIRone HCl [Buspar] 10 mg PO TID PRN 07/06/18 QUEtiapine [SEROquel] 200 mg PO HS 07/21/18 Controlled Substance Measures - Controlled Substance Measures Is patient prescribed a controlled substance at discharge?: No
== END ==
LOC: PNWHC3 13:50
PROVIDERS: ATTEND Student in an Organized Health Care Education/Training Program
DX: M47.812 Spondylosis without myelopathy or radiculopathy, cervical region (principal); M17.12 Unilateral primary osteoarthritis, left knee; E66.9 Obesity, unspecified; F17.200 Nicotine dependence, unspecified, uncomplicated; Z79.899 Other long term (current) drug therapy; Z79.1 Long term (current) use of non-steroidal anti-inflammatories (NSAID)
CPT/HCPCS: 99211

== ENCOUNTER → 2018-12-07 | Outpatient (CLI) | payer OTHER ==
--- NOTE | 2018-12-07 18:02 | MR ---
EXAMINATION TYPE: MR cervical spine wo con DATE OF EXAM: 12/07/2018 COMPARISON: 03/24/2018 HISTORY: Neck pain, tingling, numbness in fingers TECHNIQUE: Multiplanar, multisequence images of the cervical spine were acquired. Cervical vertebra have normal alignment. Disc spaces are fairly normal. There is large posterior C5-6 cervical disc herniation with elevation of the posterior longitudinal ligament. There is a smaller p osterior C6-7 disc herniation. Spinal canal is narrowed to 6.5 mm at C5-6. Canal is 7.5 mm at C6-7. C ervical spinal cord shows no edema. The brainstem is intact. There is no compression fracture. The po sterior elements are intact. Facet joints are intact. IMPRESSION: There are posterior disc herniations at C5-6 C6-7 which appear the same or very slightly increased co mpared to last MR scan. There is spinal stenosis as above. No fracture. No evidence of cord edema.
== END | disposition home or self-care (01) ==
LOC: RADMRIMAIN 16:43
PROVIDERS: ATTEND Student in an Organized Health Care Education/Training Program
DX: M48.02 Spinal stenosis, cervical region (principal); M50.222 Other cervical disc displacement at C5-C6 level
CPT/HCPCS: 72141

== ENCOUNTER → 2019-02-11 | Outpatient (CLI) | payer OTHER ==
[2019-02-11 10:56] VITALS: BP 114/83; PULSE 107; RESP 16
--- NOTE | 2019-02-11 15:59 | P.PAINPG ---
Subjective Progress Note Date: 02/11/19 Ms. Crowley is a 43-year-old who we follow for cervical facetogenic pain, knee pain, some tingling in her hands. She today returns for follow-up.at her last visit, we had ordered an MRI, which she brings in today. Today, her pain is primarily located in her neck, rated as 6/10, described as sharp, stabbing, worse with activity and position and better with ice, medications. Patient does report bilateral numbness and tingling in thumb index and middle fingers on both sides. She has never been diagnosed with carpal tunnel in the past. in the past, we have done cervical epidural steroid injections, with good benefit, as well as cervical radiofrequency ablations bilaterally, with good benefit. Last procedure was done in August 2018. She states that the epidurals did help her pain for approximately 6 months, and she is interested in repeating it. of note, she is a recovering prescription opioid abuser, she has been clean for approximately one year and 3 months. Review of systems is negative for chest pain, shortness of breath, new onset weakness, numbness/tingling, abdominal pain, malaise, fever, night sweats, chills, homicidal or suicidal ideation, or bowel or bladder incontinence. Objective - Exam Vital Signs: Reviewed in EMR GENERAL: Well appearing, in no acute distress, PSYCH: Mood and affect is appropriate. Awake, alert, and oriented SKIN: Skin color, texture, turgor normal, no rashes or lesions HEENT: Normocephalic, atraumatic. EOM intact CV: No pedal edema RESP: Respirations are unlabored, no audible wheezing GI: Abdomen non-distended MUSCULOSKELETAL: Bilateral upper extremity strength is normal and symmetric. No atrophy or tone abnormalities are noted. positive Phalen's test bilaterally at wrists. Negative Tinel sign at bilateral wrists Neck: Positive to palpation over cervical paraspinals. Positive to pain with neck flexion, extension, or lateral flexion. No obvious deformity or signs of trauma. Normal cervical lordotic curve. Positive facet loading. Negative Payan sign Extremities: Peripheral joint ROM is full and pain free without obvious instability or laxity in all four extremities. No edema or skin discolorations noted. Gait: Gait is anantalgic NEUR: Bilateral upper extremity coordination and muscle stretch reflexes are physiologic and symmetric. No loss of sensation is noted. Cranial nerves are grossly intact. imaging: MRI cervical spine done at [facility] on 12/07/2018 shows posterior disc herniations at C5-6 (large) and C6-C7 (small) with narrowing of spinal canal, no spinal cord edema. These appear the same or very slightly increased compared to last MRI scan. Assessment and Plan Assessment: Assessment: 1. Cervical spondylosis, cervical spinal stenosis 2. Potential cervical radicular pain, versus bilateral carpal tunnel. 3. Left knee arthritis. 4. Obesity 5. chronic nicotine use 6. prior history of prescription drug abuse Plan: 1. Explanation: Spoke to her about the different causes of pain, however tingling in her fingers could be related to carpal tunnel disease versus cervical radicular pain. 2. Opioid agreement: None 3. Counseling: The patient was counseled extensively onsmoking cessation as it relates to overall health and particularly chronic pain. 3 minutes was spent on this. 4. Procedures: we will proceed with cervical epidural steroid injection at C7-T1 5. Consultations: none, recently completed physical therapy with good benefit 6. Investigations: We will obtain EMG to evaluate carpal tunnel versus cervical radiculopathy 7. Medications: None prescribed, prescription given for bilateral wrist splints today 8. Disposition: For above-mentioned procedure Objective - Vital Signs Vital signs: Vital Signs Temp Pulse 107 H 02/11/19 10:42 Resp 16 02/11/19 10:42 BP 114/83 02/11/19 10:42 Pulse Ox 95 02/11/19 10:42 Intake & Output 02/10/19 02/11/19 02/11/19 18:59 06:59 18:59 Weight 122.47 kg PQRS Measure Charge Sheet Measure #130: Documentation of Current Meds in Medical Chart: Patient's medications documented in chart Measure #226: Tobacco Use: Screen & Cessation Intervention: Pt screened for tobacco use AND intervention given Measure #111: Pneumonia Vaccination: Pneumococcal vaccine NOT administered or previously given Measure #47: Advance Care Plan: Advance care planning discussed & documented, pt chose/unable to give Measure #412: Opioid Treatment Agreement: No documentation of signed opioid treatment agreement Measure #317: Preventitive Care & Scrn High Bld Press & F/U: Normal blood pressure, f/u not required Measure #128: Body Mass Index (BMI) Screening & Follow-up: BMI documented ABOVE normal parameters - f/u documented Measure #131: Pain Assessment & Follow-up: Pain positive & plan documented, Follow-up scheduled Measure #431: Unhealthy Alcohol Use Preventative Care & Scrn: Patient not identified as an unhealthy alcohol user PQRS Narrative: Smoking Status Current every day smoker Blood Pressure 114/83 Pain Intensity [Back] 1 Pain Intensity [Neck] 6 Scale Used Numeric (1 - 10) Hx Alcohol Use (MH) No Home Medications: Ambulatory Orders Buprenorphine HCl/Naloxone HCl [Suboxone 8 mg-2 mg Sl Film] 1 each SL TID 04/08/18 Furosemide [Lasix] 40 mg PO DAILY 04/08/18 Ibuprofen [Motrin] 800 mg PO TID PRN 04/08/18 Loratadine 10 mg PO DAILY 04/08/18 Pantoprazole [Protonix] 40 mg PO DAILY 04/08/18 Potassium Chloride [Klor-Con 10] 10 meq PO DAILY 04/08/18 DULoxetine HCL [Cymbalta] 60 mg PO DAILY #30 cap 04/13/18 Metoprolol Succinate (ER) [Toprol XL] 50 mg PO DAILY #30 tab.er.24h 04/13/18 hydrOXYzine HCL [Atarax] 25 mg PO HS 04/29/18 Atorvastatin [Lipitor] 10 mg PO HS 06/16/18 Ergocalciferol (Vitamin D2) [Vitamin D2] 50,000 units PO TU 06/16/18 busPIRone HCl [Buspar] 10 mg PO TID PRN 07/06/18 QUEtiapine [SEROquel] 200 mg PO HS 07/21/18 Atomoxetine HCl 40 mg PO DAILY 02/10/19 Cyclobenzaprine [Flexeril] 10 mg PO TID PRN 02/10/19 Controlled Substance Measures - Controlled Substance Measures Is patient prescribed a controlled substance at discharge?: No
== END | disposition home or self-care (01) ==
LOC: PNWHC3 10:22
PROVIDERS: ATTEND Anesthesiology
DX: M48.02 Spinal stenosis, cervical region (principal); M47.812 Spondylosis without myelopathy or radiculopathy, cervical region; M17.12 Unilateral primary osteoarthritis, left knee; E66.9 Obesity, unspecified; F19.10 Other psychoactive substance abuse, uncomplicated; Z68.41 Body mass index [BMI] 40.0-44.9, adult; F17.200 Nicotine dependence, unspecified, uncomplicated; Z79.891 Long term (current) use of opiate analgesic; Z79.1 Long term (current) use of non-steroidal anti-inflammatories (NSAID); Z79.899 Other long term (current) drug therapy
CPT/HCPCS: 99211

== ENCOUNTER → 2019-03-10 | Day surgery (SDC) | payer OTHER ==
[2019-03-08 16:22] VITALS: BMI 44.9
[~2019-03-10] MED LIST changes: +DEXAMETHASONE SOD PHOSPHATE 10 MG/ML 1 ML VIAL ONE; +IOPAMIDOL M200 10 ML VIAL ONE; +IV FLUID CONTINUATION 1,000 ML IV ONE; +LACTATED RINGERS 1,000 ML IV ONE; +LIDOCAINE 1% 20 ML VIAL (10MG/ML) FOR IV START INTRADERMA ONE; +MIDAZOLAM 2 MG/2 ML VIAL ONE; +fentaNYL (PF) 50 MCG/ML 2 ML AMP ONE
[2019-03-10 08:19] LABS: Glucose,Whole Blood 115 mg/dL (75-99)
--- NOTE | 2019-03-10 08:47 | P.PCN ---
Date of Procedure: 03/10/19 Procedure(s) Performed: . PROCEDURE 1. Cervical epidural steroid injection under fluoroscopic guidance, C7-T1 (fluoroscopy images available in the radiology department ) 2. Cervical epidurogram. PREOPERATIVE DIAGNOSIS: 1- Cervical spinal stenosis . POSTOPERATIVE DIAGNOSIS: : 1- Cervical spinal stenosis. ANESTHESIA: Local anesthesia with lidocaine 1 % , and moderate sedation, with Versed 1 mg and Fentanyl 50 mcg. EBL 0 PROCEDURE INDICATION: The patient with neck pain and radiculitis unresponsive to conservative treatment consents for procedure. PROCEDURE DESCRIPTION / TECHNIQUE: The patient was seen and identified in the preoperative area. Risks, benefits, complications, including but not limited to infections ,bleeding , allergic reactions to the medications ,and not complete pain releife, and alternatives were discussed with the patient, the patient agreed to proceed with the procedure and signed the consent. Patient was taken to the OR and time out was completed. The patient was placed in the prone position on the procedure table. A pillow was placed under the patients chest to increase the cervical interlaminar space. The cervical area was prepped and draped in the usual sterile fashion. Vital signs were closely monitored during the procedure. Conscious sedation was used during the procedure to decrease patients anxiety. Using anterior-posterior fluoroscopy, the C7-T1 interlaminar space was identified and the skin over this site was marked and then infiltrated with 1% lidocaine subcutaneously. Subsequently, a 20-gauge 3-1/2-inch Tuohy epidural needle was inserted and advanced toward the epidural space by means of the ``hanging-drop technique and guided by AP and lateral fluoroscopy. The correct needle position in the epidural space was verified with the injection of 2 mL of the water soluble contrast dye [id number]-200 and observing an excellent epidurogram with the epidural spread of the dye, after negative aspiration for blood and CSF and in the absence of paresthesias. Again after negative aspiration, mixture containing 20 mg Dexamethasone and 2 ml of preservative- free normal saline injected and a washout of epidurogram was seen. Needle was withdrawn intact, skin was cleansed, and bandages were applied. Complications= none. Disposition= patient was placed in supine position and transferred to the recovery room area in stable condition and there was no evidence of upper or lower extremity motor or sensory deficit after the procedure patient was discharged from recovery room after discharge criteria met and home discharge instructions was given by the staff and patient will follow with the pain clinic in 2-4 weeks
[2019-03-10 09:02] VITALS: BP 145/81; PULSE 95; RESP 16
--- NOTE | 2019-03-10 09:02 | FL ---
EXAMINATION TYPE: FL guided pain mgmt statistic DATE OF EXAM: 03/10/2019 HISTORY: Flouroscopy time Less than 60 seconds of fluoroscopy provided. IMPRESSION: 1. Fluoroscopy time.
== END ==
LOC: ORPAIN 07:31
PROVIDERS: ATTEND Specialist
DX: M48.02 Spinal stenosis, cervical region (principal); M47.22 Other spondylosis with radiculopathy, cervical region; I10 Essential (primary) hypertension
CPT/HCPCS: 81025; 62321; J2250; J1100; J3010; Q9966

== ENCOUNTER → 2019-09-14 | Outpatient (CLI) | payer OTHER ==
[2019-09-14 12:47] VITALS: BP 152/93; PULSE 100; RESP 16
--- NOTE | 2019-09-14 13:02 | P.PAINPG ---
Subjective Progress Note Date: 09/14/19 This is a follow-up visit for this 43 years old female with a chronic history of severe neck pain, and left knee pain ,diagnosed with cervical spondylosis with cervical facet arthropathy, neck pain improved after RFA of the cervical medial branch, and her left knee improved after left knee steroid injection, she reports excellent pain relief for 10 months after the left knee injection, currently she is complaining of left knee pain which is increased with any knee movement, and also increase when she is walking or doing any activity , she denies any motor or sensory deficit in the upper or lower extremity, currently she is complaining of severe left knee pain mostly at the lateral aspect of the left knee, increased with walking or going upstairs or downstairs, she denies any motor or sensory deficit she denies any swelling in the left knee she denies any redness, no discharge from the knee area, Objective - Vital Signs Vital signs: Vital Signs Temp Pulse 100 09/14/19 12:42 Resp 16 09/14/19 12:42 BP 152/93 09/14/19 12:42 Pulse Ox 95 09/14/19 12:42 Intake & Output 09/13/19 09/14/19 09/14/19 18:59 06:59 18:59 Weight 124.738 kg - Exam -Constitutiona : Cooperative , not in acute distress . -HEENT : nech : supple , no Lymphadenopathy , normal thyroid size . eyes : no ptosis , no icterus, no photophobia . - neurologic : Cranial nerve II to XII intact , no focal neurological deffecit . -psychatric : alert , oriented X 3 , appropriate affect , intact judgment and insight . -Lymphatic : no Lymphadenopathy . - musculoskeltal : Cervical Spine= neck full range of motion Lumber spine moter stegnth lower extremities ,thigh and legs 5/5 Right side , 5/5 Left side Tenderness over the medial and lateral aspect of the left knee, flexion and extension of the left knee associated with knee pain The knee joints full for range of motion bilaterally, no erythema, no discharge Assessment and Plan Plan: Assessment and plan= left knee arthalgia Patient could benefit from left knee steroid injection Cervical spondylosis, Neck pain improved after RFA medial branch cervical area done more than a year ago Time with Patient: Less than 30 PQRS Measure Charge Sheet Measure #130: Documentation of Current Meds in Medical Chart: Patient's medications documented in chart Measure #226: Tobacco Use: Screen & Cessation Intervention: Pt screened for tobacco use AND intervention given Measure #111: Pneumonia Vaccination: Pneumococcal vaccine NOT administered or previously given Measure #47: Advance Care Plan: Advance care planning discussed & documented, pt chose/unable to give Measure #412: Opioid Treatment Agreement: No documentation of signed opioid treatment agreement Measure #408: Opioid Therapy Follow-up Evaluation: Patient had NO f/u eval minimum every 3 months during opioid therapy Measure #317: Preventitive Care & Scrn High Bld Press & F/U: Pre-hypertensive or hypertensive BP documented, pt will f/u with PCP Measure #128: Body Mass Index (BMI) Screening & Follow-up: BMI documented ABOVE normal parameters - f/u documented Measure #131: Pain Assessment & Follow-up: Pain positive & plan documented, Follow-up scheduled Measure #431: Unhealthy Alcohol Use Preventative Care & Scrn: Patient not identified as an unhealthy alcohol user PQRS Narrative: Smoking Status Current every day smoker Blood Pressure 152/93 Pain Intensity [Left Knee] 8 Pain Intensity [Neck] 5 Scale Used Numeric (1 - 10) Hx Alcohol Use (MH) No Home Medications: Ambulatory Orders Buprenorphine HCl/Naloxone HCl [Suboxone 8 mg-2 mg Sl Film] 1 each SL TID 04/08/18 Furosemide [Lasix] 40 mg PO DAILY 04/08/18 Ibuprofen [Motrin] 800 mg PO TID PRN 04/08/18 Loratadine 10 mg PO DAILY 04/08/18 Pantoprazole [Protonix] 40 mg PO DAILY 04/08/18 Potassium Chloride [Klor-Con 10] 10 meq PO DAILY 04/08/18 DULoxetine HCL [Cymbalta] 60 mg PO DAILY #30 cap 04/13/18 Metoprolol Succinate (ER) [Toprol XL] 50 mg PO DAILY #30 tab.er.24h 04/13/18 hydrOXYzine HCL [Atarax] 25 mg PO HS 04/29/18 Atorvastatin [Lipitor] 10 mg PO HS 06/16/18 Ergocalciferol (Vitamin D2) [Vitamin D2] 50,000 units PO WEEKLY 06/16/18 busPIRone HCl [Buspar] 10 mg PO TID PRN 07/06/18 QUEtiapine [SEROquel] 200 mg PO HS 07/21/18 Cyclobenzaprine [Flexeril] 10 mg PO TID PRN 02/10/19 Acetaminophen Tab [Tylenol] 650 mg PO DIRECTED PRN 09/13/19 Lidocaine Roll On 1 applic TOPICAL DIRECTED PRN 09/13/19 Controlled Substance Measures - Controlled Substance Measures Is patient prescribed a controlled substance at discharge?: No
== END | disposition home or self-care (01) ==
LOC: PNWHC3 12:31
PROVIDERS: ATTEND Specialist
DX: M47.812 Spondylosis without myelopathy or radiculopathy, cervical region (principal); M25.562 Pain in left knee; F17.200 Nicotine dependence, unspecified, uncomplicated; Z98.890 Other specified postprocedural states; Z79.891 Long term (current) use of opiate analgesic; Z79.899 Other long term (current) drug therapy; Z79.1 Long term (current) use of non-steroidal anti-inflammatories (NSAID)
CPT/HCPCS: 99211

== ENCOUNTER 2019-09-19 17:01 | Emergency (ER) | payer OTHER ==
--- NOTE | 2019-09-19 17:11 | ED ---
General Adult HPI - General Chief complaint: Abdominal Pain Stated complaint: kidney pain Time Seen by Provider: 09/19/19 17:07 Source: patient Mode of arrival: ambulatory Limitations: no limitations - History of Present Illness Initial comments: Patient presents the ED complaining of having left lumbar/flank pain for the past 1-1.5 months or so. Patient states her pain is worse with certain movements and position changes. Patient states that she saw her PCP for this pain a few days ago, and he "dipped" her urine at that time. She states that she was told that there was blood in her urine, and she was provided with a prescription for Flomax for a possible kidney stone. Patient states that her pain continues, and she says it has been gradually getting worse since it began. She admits to feeling somewhat nauseated at times as well. Patient denies known trauma or injury, fever or chills, headache, chest pain, dyspnea, dizziness, abdominal pain, vomiting, diarrhea or constipation, bloody or melanotic stool, gross hematuria, dysuria, urinary frequency, leg pain/numbness/weakness, incontinence or urinary retention, or any other symptoms or complaints. - Related Data Home Medications Medication Instructions Recorded Confirmed Buprenorphine HCl/Naloxone HCl 1 each SL TID 04/08/18 09/14/19 [Suboxone 8 mg-2 mg Sl Film] Furosemide [Lasix] 40 mg PO DAILY 04/08/18 09/14/19 Ibuprofen [Motrin] 800 mg PO TID PRN 04/08/18 09/14/19 Loratadine 10 mg PO DAILY 04/08/18 09/14/19 Pantoprazole [Protonix] 40 mg PO DAILY 04/08/18 09/14/19 Potassium Chloride [Klor-Con 10] 10 meq PO DAILY 04/08/18 09/14/19 hydrOXYzine HCL [Atarax] 25 mg PO HS 04/29/18 09/14/19 Atorvastatin [Lipitor] 10 mg PO HS 06/16/18 09/14/19 Ergocalciferol (Vitamin D2) 50,000 units PO WEEKLY 06/16/18 09/14/19 [Vitamin D2] busPIRone HCl [Buspar] 10 mg PO TID PRN 07/06/18 09/14/19 QUEtiapine [SEROquel] 200 mg PO HS 07/21/18 09/14/19 Cyclobenzaprine [Flexeril] 10 mg PO TID PRN 02/10/19 09/14/19 Acetaminophen Tab [Tylenol] 650 mg PO DIRECTED PRN 09/13/19 09/14/19 Lidocaine Roll On 1 applic TOPICAL DIRECTED PRN 09/13/19 09/14/19 Previous Rx's Medication Instructions Recorded DULoxetine HCL [Cymbalta] 60 mg PO DAILY #30 cap 04/13/18 Metoprolol Succinate (ER) [Toprol 50 mg PO DAILY #30 tab.er.24h 04/13/18 XL] Allergies Allergy/AdvReac Type Severity Reaction Status Date / Time No Known Allergies Allergy Verified 09/19/19 17:05 Review of Systems ROS Statement: Those systems with pertinent positive or pertinent negative responses have been documented in the HPI. ROS Other: All systems not noted in ROS Statement are negative. Past Medical History Past Medical History: Asthma, GERD/Reflux, Hyperlipidemia, Hypertension Additional Past Medical History / Comment(s): NECK PAIN, LEFT KNEE PAIN. History of Any Multi-Drug Resistant Organisms: None Reported Past Surgical History: Appendectomy, Cholecystectomy, Hysterectomy, Orthopedic Surgery Additional Past Surgical History / Comment(s): arthroscopy left knee X2, PAIN CLINIC PROCEDURES Past Anesthesia/Blood Transfusion Reactions: No Reported Reaction, Family History of Problems w/ Anesthesia Additional Past Anesthesia/Blood Transfusion Reaction / Comment(s): mother-PONV Past Psychological History: Anxiety, Depression Smoking Status: Current every day smoker - Past Family History Mother Family Medical History: No Reported History General Exam Limitations: no limitations General appearance: alert, in no apparent distress Head exam: Present: atraumatic, normocephalic Eye exam: Present: normal appearance, EOMI ENT exam: Present: mucous membranes moist Neck exam: Present: other (Trachea is in midline) Respiratory exam: Present: normal lung sounds bilaterally. Absent: respiratory distress, wheezes, rales, rhonchi Cardiovascular Exam: Present: regular rate, normal rhythm, normal heart sounds, other (Normal radial pulses bilaterally) GI/Abdominal exam: Present: soft, other (Obese abdomen). Absent: tenderness, guarding Back exam: Present: normal inspection, full ROM, other (Mild left lumbar tenderness, no midline spinal tenderness). Absent: CVA tenderness (R), CVA tenderness (L) Neurological exam: Present: alert, oriented X3, other (Patient has no evidence of lower extremity neurological deficit or saddle anesthesia on exam). Absent: motor sensory deficit Psychiatric exam: Present: normal affect, normal mood Skin exam: Present: warm, dry, intact, normal color Course Vital Signs 09/19/19 17:02 Temperature 97.9 F Pulse Rate 115 H Respiratory 18 Rate Blood Pressure 142/85 O2 Sat by Pulse 98 Oximetry Medical Decision Making - Medical Decision Making Patient's CT abdomen/pelvis does not provide a definite explanation for the patient's pain. No ureteral calculus or hydronephrosis is seen on CT. Patient's UA urine specimen appears to be contaminated, and I do not suspect that the patient has a UTI. Patient is afebrile and without leukocytosis. Patient reports that her pain is worse with certain movements and position changes. I suspect that the patient's pain is likely musculoskeletal in etiology. Patient is aware of her test results, and she feels comfortable going home at this time. She was counseled about lumbar back pain. She was clearly explained return and follow-up instructions. She was instructed to follow up closely with her primary care provider. - Lab Data Result diagrams: 09/19/19 17:25 09/19/19 17:25 Lab Results 09/19/19 09/19/19 09/19/19 Range/Units 17:20 17:25 17:25 WBC 8.8 (3.8-10.6) k/uL RBC 4.67 (3.80-5.40) m/uL Hgb 12.6 (11.4-16.0) gm/dL Hct 40.4 (34.0-46.0) % MCV 86.4 (80.0-100.0) fL MCH 26.9 (25.0-35.0) pg MCHC 31.2 (31.0-37.0) g/dL RDW 14.5 (11.5-15.5) % Plt Count 539 H (150-450) k/uL Neutrophils % 55 % Lymphocytes % 33 % Monocytes % 6 % Eosinophils % 3 % Basophils % 1 % Neutrophils # 4.8 (1.3-7.7) k/uL Lymphocytes # 2.9 (1.0-4.8) k/uL Monocytes # 0.5 (0-1.0) k/uL Eosinophils # 0.3 (0-0.7) k/uL Basophils # 0.1 (0-0.2) k/uL Hypochromasia Slight Sodium 137 (137-145) mmol/L Potassium 4.0 (3.5-5.1) mmol/L Chloride 106 (98-107) mmol/L Carbon Dioxide 21 L (22-30) mmol/L Anion Gap 10 mmol/L BUN 12 (7-17) mg/dL Creatinine 0.65 (0.52-1.04) mg/dL Est GFR (CKD-EPI)AfAm >90 (>60 ml/min/1.73 sqM) Est GFR (CKD-EPI)NonAf >90 (>60 ml/min/1.73 sqM) Glucose 126 H (74-99) mg/dL Calcium 9.4 (8.4-10.2) mg/dL Total Bilirubin 0.4 (0.2-1.3) mg/dL AST 26 (14-36) U/L ALT 14 (4-34) U/L Alkaline Phosphatase 184 H (38-126) U/L Total Protein 7.8 (6.3-8.2) g/dL Albumin 4.2 (3.5-5.0) g/dL Lipase 69 (23-300) U/L HCG, Qual Not Detected Urine Color Light Yellow Urine Appearance Cloudy H (Clear) Urine pH 6.5 (5.0-8.0) Ur Specific [place] 1.007 (1.001-1.035) Urine Protein Negative (Negative) Urine Glucose (UA) Negative (Negative) Urine Ketones Negative (Negative) Urine Blood Trace H (Negative) Urine Nitrite Negative (Negative) Urine Bilirubin Negative (Negative) Urine Urobilinogen <2.0 (<2.0) mg/dL Ur Leukocyte Esterase Negative (Negative) Urine RBC 1 (0-5) /hpf Urine WBC 7 H (0-5) /hpf Ur Squamous Epith Cells 13 H (0-4) /hpf Urine Bacteria Many H (None) /hpf Hyaline Casts 1 (0-2) /lpf - Radiology Data Radiology results: report reviewed (CT abdomen/pelvis without contrast: 4 mm nonobstructive right renal calculus; no hydronephrosis or ureteral calculus is s een; 2.9 cm dominant follicle or functional cyst in left ovary; a couple of mildly enlarged, nonspecific right mid abdominal mesenteric lymph nodes; a few groundglass areas at the right base; hepatomegaly) Disposition Clinical Impression: Lumbar back pain Disposition: HOME SELF-CARE Condition: Stable Instructions (If sedation given, give patient instructions): Back Pain (ED) Additional Instructions: Return to the ER immediately should you develop new or worsening pain, leg numbness or weakness, trouble controlling your bladder or bowels, a fever, chest pain, shortness of breath, feeling dizzy or faint, vomiting, or new or worsening symptoms. Follow up closely with your primary care provider. Is patient prescribed a controlled substance at d/c from ED?: No Referrals: Get Candelario MD [Primary Care Provider] - 1-2 days Time of Disposition: 19:11
[2019-09-19] MEDS ORDERED: ONDANSETRON ODT 8 MG TAB.RAPDIS PO STA (17:15)
[2019-09-19] MEDS ORDERED: KETOROLAC 60 MG/2 ML VIAL IM STA (17:16)
[2019-09-19 17:38] LABS: Basophils # (A) 0.1 k/uL (0-0.2); Basophils % (A) 1 %; Eosinophils # (A) 0.3 k/uL (0-0.7); Eosinophils % (A) 3 %; HCT 40.4 % (34.0-46.0); HGB 12.6 gm/dL (11.4-16.0); Hypochromasia Slight; Lymphocytes # (A) 2.9 k/uL (1.0-4.8); Lymphocytes % (A) 33 %; MCH 26.9 pg (25.0-35.0); MCHC 31.2 g/dL (31.0-37.0); MCV 86.4 fL (80.0-100.0); Mean Platelet Volume 7.1; Monocytes # (A) 0.5 k/uL (0-1.0); Monocytes % (A) 6 %; Neutrophils # (A) 4.8 k/uL (1.3-7.7); Neutrophils % (A) 55 %; Platelet Count 539 k/uL (150-450); RBC 4.67 m/uL (3.80-5.40); RDW 14.5 % (11.5-15.5); WBC 8.8 k/uL (3.8-10.6)
[2019-09-19 17:49] LABS: HCG,Qualitative Serum Not Detected
[2019-09-19 17:52] LABS: ALT 14 U/L (4-34); AST 26 U/L (14-36); African American GFR (CKD) >90 (>60 ml/min/1.73 sqM); Albumin 4.2 g/dL (3.5-5.0); Alkaline Phosphatase 184 U/L (38-126); Anion Gap 10 mmol/L; Blood Urea Nitrogen 12 mg/dL (7-17); Calcium 9.4 mg/dL (8.4-10.2); Carbon Dioxide 21 mmol/L (22-30); Chloride 106 mmol/L (98-107); Glucose 126 mg/dL (74-99); Non-African American GFR(CKD) >90 (>60 ml/min/1.73 sqM); Sodium 137 mmol/L (137-145); Total Bilirubin 0.4 mg/dL (0.2-1.3); Total Protein 7.8 g/dL (6.3-8.2)
--- NOTE | 2019-09-19 18:20 | CT ---
EXAMINATION TYPE: CT abdomen pelvis wo con DATE OF EXAM: 09/19/2019 COMPARISON: 11/10/2009 HISTORY: 44-year-old female LT flank pain CT DLP: 1577.4 mGycm. Automated exposure control for dose reduction was used. TECHNIQUE: Contiguous axial scanning of the abdomen and pelvis without IV contrast. Coronal and sagit kathe reconstructions performed. FINDINGS: Heart normal size without pericardial effusion. A couple focal groundglass densities in the right low er lung are nonspecific. No pleural effusion. Liver enlarged at 20.4 cm. Cholecystectomy clips. Adrenal glands, spleen, pancreas and no gross abnor mal by noncontrast CT. 4 mm nonobstructive right renal calculus. No hydronephrosis on either side. No dilated small bowel, free fluid, free air. A couple mildly enlarged right mid abdominal mesenteric lymph nodes measuring up to 1.1 cm nonspecific. Some surgical material in the right lower quadrant likely related to prior appendectomy. Mild stool burden. Redundant sigmoid colon. No pericolonic inflammatory change. Bladder partially distended. Uterus surgically absent. Both ovaries are visualized. 2.9 cm cystic les ion of the left ovary. No abnormal fluid collection the pelvis or pelvic lymphadenopathy. Bones: Mild degenerative changes of the hips. Sclerotic focus posterior right iliac bone, unchanged f rom 2010 compatible with a benign etiology. Right L5 hemisacralization. Facet arthropathy lower lumbar spine. IMPRESSION: 1. 4 mm nonobstructive right renal calculus. No hydronephrosis or ureteral calculus seen. 2. A 2.9 cm dominant follicle or functional cyst in the left ovary. Status post hysterectomy. 3. A couple mildly enlarged right mid abdominal mesenteric lymph nodes measuring up to 1.1 cm are no nspecific, likely reactive/post inflammatory. Correlate for possible mild mesenteric adenitis. 4. A few groundglass areas at the right base suggests small infectious/inflammatory foci. 5. Hepatomegaly at 20.4 cm.
[2019-09-19 18:38] LABS: Appearance,Urine Cloudy (Clear); Bacteria,Urine Many /hpf; Bilirubin,Urine Negative (Negative); Blood,Urine Trace (Negative); Color,Urine Light Yellow; Glucose,Urine (UA) Negative (Negative); Hyaline Casts,Urine 1 /lpf (0-2); Ketones,Urine Negative (Negative); Leukocyte Esterase,Urine Negative (Negative); Nitrite,Urine Negative (Negative); PH, Urine 6.5 (5.0-8.0); Protein,Urine Negative (Negative); RBC,Urine 1 /hpf (0-5); Specific Gravity,Urine 1.007 (1.001-1.035); Squamous Epithelial Cell,Urine 13 /hpf (0-4); Urobilinogen,Urine <2.0 mg/dL (<2.0); WBC,Urine 7 /hpf (0-5)
[2019-09-19 19:21] VITALS: BP 137/95; PULSE 113; RESP 16; TEMP 98
== END 2019-09-19 19:15 | disposition home or self-care (01) ==
LOC: EC 17:01
DX: M54.5 Low back pain (principal); R10.9 Unspecified abdominal pain; R31.9 Hematuria, unspecified; R11.0 Nausea; E78.5 Hyperlipidemia, unspecified; F32.9 Major depressive disorder, single episode, unspecified; F41.9 Anxiety disorder, unspecified; I10 Essential (primary) hypertension; K21.9 Gastro-esophageal reflux disease without esophagitis; F17.200 Nicotine dependence, unspecified, uncomplicated; Z79.899 Other long term (current) drug therapy; Z90.710 Acquired absence of both cervix and uterus
CPT/HCPCS: 36415; 80053; 83690; 85025; 81001; 84703; 74176; 99284; 96372; J1885

== ENCOUNTER 2019-09-30 13:32 | Day surgery (SDC) | payer OTHER ==
[2019-09-30] MEDS ORDERED: LACTATED RINGERS 1,000 ML IV SCH (13:44)
[2019-09-30 13:54] VITALS: TEMP 97.7
[2019-09-30] MEDS ORDERED: TRIAMCINOLONE ACETONIDE 40 MG/ML 1 ML VIAL ONE (14:22)
[2019-09-30] MEDS ORDERED: SODIUM CHLORIDE 0.9% (PF) 10 ML VIAL ONE (14:22)
[2019-09-30] MEDS ORDERED: fentaNYL (PF) 50 MCG/ML 2 ML AMP ONE (14:22)
[2019-09-30] MEDS ORDERED: ROPIVACAINE 5MG/ML 20ML VIAL ONE (14:22)
[2019-09-30] MEDS ORDERED: MIDAZOLAM 2 MG/2 ML VIAL ONE (14:22)
[2019-09-30] MEDS ORDERED: IV FLUID CONTINUATION 1,000 ML IV ONE (14:42)
--- NOTE | 2019-09-30 14:47 | P.PCN ---
Date of Procedure: 09/30/19 Procedure(s) Performed: Procedure Note PROCEDURE PERFORMED: Left intra-articular knee joint injection. PREOPERATIVE DIAGNOSIS: Left knee pain POSTOPERATIVE DIAGNOSIS: same ATTENDING PHYSICIAN: Asim Morrow M.D. ANESTHESIA: Local infiltration of 2mL of 1% lidocaine, moderate sedation with Versed and fentanyl, sedation time 9 minutes INJECTATE: 5mL total solution, containing 4mL of ropivacaine 0.5% and 1mL of 40mg/mL Kenalog Ultrasound was used for the procedure and images were printed and saved to radiology chart. ESTIMATED BLOOD LOSS: None. COMPLICATIONS: None. A timeout was completed, verifying correct patient, procedure, site, positioning, and implants or special equipment. INDICATIONS FOR PROCEDURE: Patient has a clinical picture of knee pain and osteoarthritis of the above- mentioned knee joint(s). PROCEDURE AND FINDINGS: The patient was seen in the preoperative holding area. After verification of informed consent, availability of tilt tray driver and n.p.o. status, the patient was brought to the procedure unit and placed on the bed with left knee flexed using a pillow. Monitors were applied consisting of EKG, pulse oximetry, and noninvasive blood pressure cuff. The patient was monitored throughout the case. IV sedation was used to relieve the patient's anxiety. The area over the left knee(s) was then prepped in the usual sterile fashion. After identifying a point on the inferolateral pole of the femur by palpation, the ultrasound machine was prepped into the field and used for needle guidance. Using continuous ultrasound guidance, a 22-gauge 3-inch [place] needle was advanced in to the lateral portion of the knee joint. Aspiration for intra- vascular placement was negative. At this point, the above listed injectate was delivered in to the joint without resistance. The needle was visualized throughout the entire procedure using ultrasound. The needle was then withdrawn. The patient tolerated the procedure well, with no apparent complications. The patient was then taken to the postop holding area, where they remained hemodynamically stable and was observed for 20-30 mins. After instructions were given, the patient was discharged home in stable condition with a responsible adult.
[2019-09-30 14:48] VITALS: RESP 16
[2019-09-30 15:00] VITALS: BP 115/77; PULSE 84
== END 2019-09-30 15:12 | disposition home or self-care (01) ==
LOC: ORPAIN 13:32
PROVIDERS: ATTEND Anesthesiology
DX: M17.12 Unilateral primary osteoarthritis, left knee (principal); M25.562 Pain in left knee; Z90.710 Acquired absence of both cervix and uterus
CPT/HCPCS: 20611; J2250; J3301; J3010; J2795; 20610

== ENCOUNTER → 2019-11-03 | Outpatient (CLI) | payer OTHER ==
[2019-11-03 08:38] VITALS: BP 154/76; PULSE 116; RESP 20; TEMP 98.5
--- NOTE | 2019-11-03 09:34 | P.PN ---
Subjective Progress Note Date: 11/03/19 This is a follow-up visit for this 44 years old female with a chronic history of severe neck pain, and left knee pain ,diagnosed with cervical spondylosis with cervical facet arthropathy, neck pain improved after RFA of the cervical medial branch, she continued to have left knee , recently we did left knee steroid injection, she reports she had only short-term benefit from it, currently she is complaining of left knee pain which is increased with any knee movement, and also increase when she is walking or doing any activity , she denies any motor or sensory deficit in the upper or lower extremity, currently she is complaining of severe left knee pain mostly at the lateral aspect of the left knee, increased with walking or going upstairs or downstairs, she denies any motor or sensory deficit she denies any swelling in the left knee she denies any redness, no discharge from the knee area, patient was referred previously to see orthopedic surgeon but she couldn't have any appointment because of insurance issues. -Constitutiona : Cooperative , not in acute distress . -HEENT : nech : supple , no Lymphadenopathy , normal thyroid size . eyes : no ptosis , no icterus, no photophobia . - neurologic : Cranial nerve II to XII intact , no focal neurological deffecit . -psychatric : alert , oriented X 3 , appropriate affect , intact judgment and insight . -Lymphatic : no Lymphadenopathy . - musculoskeltal : Cervical Spine= neck full range of motion Lumber spine moter stegnth lower extremities ,thigh and legs 5/5 Right side , 5/5 Left side Tenderness over the medial and lateral aspect of the left knee, flexion and extension of the left knee associated with knee pain The knee joints full for range of motion chet aterally, no erythema, no discharge Assessment and plan= left knee arthalgia Patient had short-term benefit from left knee steroid injection, we will try to schedule patient to have left knee Hyalgan injection Cervical spondylosis, Neck pain improved after RFA medial branch cerv ical area done more than a year ago Time with Patient: Less than 30 PQRS Measure Charge Sheet Measure #130: Documentation of Current Meds in Medical Chart: Patient's medications documented in chart Measure #226: Tobacco Use: Screen & Cessation Intervention: Pt screened for tobacco use AND intervention given Measure #111: Pneumonia Vaccination: Pneumococcal vaccine NOT administered or previously given Measure #47: Advance Care Plan: Advance care planning discussed & documented, pt chose/unable to give Measure #412: Opioid Treatment Agreement: No documentation of signed opioid treatment agreement Measure #408: Opioid Therapy Follow-up Evaluation: Patient had NO f/u eval minimum every 3 months during opioid therapy Measure #317: Preventitive Care & Scrn High Bld Press & F/U: Pre-hypertensive or hypertensive BP documented, pt will f/u with PCP Measure #128: Body Mass Index (BMI) Screening & Follow-up: BMI documented ABOVE normal parameters - f/u documented Measure #131: Pain Assessment & Follow-up: Pain positive & plan documented, Follow-up scheduled Measure #431: Unhealthy Alcohol Use Preventative Care & Scrn: Patient not identified as an unhealthy alcohol user PQRS Narrative: - Controlled Substance Measures Is patient prescribed a controlled substance at discharge?: No Objective - Vital Signs Vital signs: Vital Signs Temp 98.5 F 11/03/19 08:33 Pulse 116 H 11/03/19 08:33 Resp 20 11/03/19 08:33 BP 154/76 11/03/19 08:33 Pulse Ox Intake & Output 11/02/19 11/03/19 11/03/19 18:59 06:59 18:59 Weight 124.738 kg
== END | disposition home or self-care (01) ==
LOC: PNWHC3 08:29
PROVIDERS: ATTEND Specialist
DX: M25.562 Pain in left knee (principal); M47.812 Spondylosis without myelopathy or radiculopathy, cervical region
CPT/HCPCS: 99211

== ENCOUNTER 2020-10-04 20:02 | Emergency (ER) | payer OTHER ==
[2020-10-04 20:33] VITALS: TEMP 98.1
[2020-10-04] MEDS ORDERED: ONDANSETRON 4 MG/2 ML VIAL IVP STA (21:55)
--- NOTE | 2020-10-04 22:03 | ED ---
URI HPI - General Chief Complaint: Upper Respiratory Infection Stated Complaint: COVID+,SOB Time Seen by Provider: 10/04/20 21:35 Source: patient Mode of arrival: ambulatory Limitations: no limitations - History of Present Illness Initial Comments: 45 year-old female patient presents for evaluation of cough and sputum production. States that she started coughing up brown phlegm today. States that she tested positive for COVID on 09/28/20, started having symptoms on 09/27/20. States that she initially had fevers, vomiting, and cough. States fever and vo miting have resolved. She does not have an appetite. Reports mild shortness of breath. Stopped smoking in August. History of asthma. Has inhaler at home, uses occasionally. Patient denies any recent rash, abdominal pain, diarrhea, constipation, back pain, numbness, tingling, dizziness, weakness, hematuria, dysuria, urinary urgency, urinary frequency, headache, visual changes, or any other complaints. - Related Data Home Medications Medication Instructions Recorded Confirmed Buprenorphine HCl/Naloxone HCl 1 each SL TID 04/08/18 11/22/19 [Suboxone 8 mg-2 mg Sl Film] Furosemide [Lasix] 40 mg PO DAILY 04/08/18 11/22/19 Ibuprofen [Motrin] 800 mg PO TID PRN 04/08/18 11/22/19 Loratadine 10 mg PO DAILY 04/08/18 11/22/19 Pantoprazole [Protonix] 40 mg PO DAILY 04/08/18 11/22/19 Potassium Chloride [Klor-Con 10] 10 meq PO DAILY 04/08/18 11/22/19 hydrOXYzine HCL [Atarax] 25 mg PO HS 04/29/18 11/22/19 Atorvastatin [Lipitor] 10 mg PO HS 06/16/18 11/22/19 Ergocalciferol (Vitamin D2) 50,000 units PO WEEKLY 06/16/18 11/22/19 [Vitamin D2] busPIRone HCl [Buspar] 10 mg PO TID PRN 07/06/18 11/22/19 QUEtiapine [SEROquel] 200 mg PO HS 07/21/18 11/22/19 Cyclobenzaprine [Flexeril] 10 mg PO TID PRN 02/10/19 11/22/19 Acetaminophen Tab [Tylenol] 650 mg PO DIRECTED PRN 09/13/19 11/22/19 Lidocaine Roll On 1 applic TOPICAL DIRECTED PRN 09/13/19 11/22/19 Previous Rx's Medication Instructions Recorded DULoxetine HCL [Cymbalta] 60 mg PO DAILY #30 cap 04/13/18 Metoprolol Succinate (ER) [Toprol 50 mg PO DAILY #30 tab.er.24h 04/13/18 XL] Ondansetron [Zofran ODT] 4 mg PO Q8HR PRN #20 tab 10/04/20 guaiFENesin-DM 600/30MG [Mucinex 2 each PO Q12HR PRN #20 tab.er.12h 10/04/20 Dm] Allergies Allergy/AdvReac Type Severity Reaction Status Date / Time No Known Allergies Allergy Verified 10/04/20 20:30 Review of Systems ROS Statement: Those systems with pertinent positive or pertinent negative responses have been documented in the HPI. ROS Other: All systems not noted in ROS Statement are negative. Past Medical History Past Medical History: Asthma, GERD/Reflux, Hyperlipidemia, Hypertension Additional Past Medical History / Comment(s): NECK PAIN, LEFT KNEE PAIN. History of Any Multi-Drug Resistant Organisms: None Reported Past Surgical History: Appendectomy, Cholecystectomy, Hysterectomy, Orthopedic Surgery Additional Past Surgical History / Comment(s): arthroscopy left knee X2, PAIN CLINIC PROCEDURES Past Anesthesia/Blood Transfusion Reactions: No Reported Reaction, Family History of Problems w/ Anesthesia Additional Past Anesthesia/Blood Transfusion Reaction / Comment(s): mother-PONV Past Psychological History: Anxiety, Depression Smoking Status: Former smoker Past Alcohol Use History: None Reported Past Drug Use History: None Reported - Past Family History Mother Family Medical History: No Reported History General Exam Limitations: no limitations General appearance: alert, in no apparent distress, other (Physical well- developed, well-nourished adult female patient in no acute distress. Vital signs upon presentation are temperature 98.1F, pulse 116, respirations 116, resp 20, BP 115/74, Pulse ox 96% on room air. ) Eye exam: Present: normal appearance, PERRL, EOMI. Absent: scleral icterus, conjunctival injection, periorbital swelling ENT exam: Present: normal exam, normal oropharynx, mucous membranes moist Respiratory exam: Present: rhonchi (coarse lung sounds). Absent: normal lung sounds bilaterally, respiratory distress, wheezes, rales, stridor Cardiovascular Exam: Present: regular rate, normal rhythm, normal heart sounds. Absent: systolic murmur, diastolic murmur, rubs, gallop, clicks GI/Abdominal exam: Present: soft, normal bowel sounds. Absent: distended, tenderness, guarding, rebound, rigid Neurological exam: Present: alert, oriented X3, CN II-XII intact Psychiatric exam: Present: normal affect, normal mood Skin exam: Present: warm, dry, intact, normal color. Absent: rash Course Vital Signs 10/04/20 10/04/20 10/04/20 20:30 23:04 23:27 Temperature 98.1 F Pulse Rate 116 H 98 Respiratory 20 16 18 Rate Blood Pressure 115/74 122/80 O2 Sat by Pulse 96 93 L Oximetry 10/05/20 00:16 Temperature Pulse Rate 98 Respiratory 18 Rate Blood Pressure 124/85 O2 Sat by Pulse 93 L Oximetry Medical Decision Making - Medical Decision Making 45-year-old female patient presented to the emergency department today for evaluation of increasing cough and shortness of breath. Patient did test positive for covid on 09/28/2020. Physical examination revealed coarse expiratory wheezing. Chest xray showed no acute abnormalities. Vital signs were within acceptable range. She did meet criteria for antibody infusion. She was given the medication and monitored without complications. She'll be discharged follow up with her primary care physician for recheck in 1-2 days. Return parameters were discussed in detail. Patient verbalizes understanding and agrees with this plan. Case discussed with my attending Dr. Bone. Disposition Clinical Impression: COVID-19 Disposition: HOME SELF-CARE Condition: Good Instructions (If sedation given, give patient instructions): Coronavirus Disease 2019 (COVID-19) Additional Instructions: Use home inhaler every 4 hours as needed for shortness of breath. Take other medications as directed. Follow up with your primary care physician for recheck in 1-2 days. Return for any new, worsening, or concerning symptoms. Prescriptions: guaiFENesin-DM 600/30MG [Mucinex Dm] 2 each PO Q12HR PRN #20 tab.er.12h PRN Reason: Cough Ondansetron [Zofran ODT] 4 mg PO Q8HR PRN #20 tab PRN Reason: Nausea Is patient prescribed a controlled substance at d/c from ED?: No Referrals: Get Candelario MD [Primary Care Provider] - 1-2 days Time of Disposition: 00:15
--- NOTE | 2020-10-04 22:12 | XR ---
EXAMINATION TYPE: XR chest 1V DATE OF EXAM: 10/04/2020 COMPARISON: NONE HISTORY: Cough. TECHNIQUE: Single view FINDINGS: Heart and mediastinum are normal. Lungs are clear. Diaphragm is normal. Bony thorax is inta ct. There is no pleural effusion. IMPRESSION: No active cardiopulmonary disease. Normal heart.
[2020-10-04] MEDS ORDERED: [UNRECOGNIZED DRUG - OTHER] IVPB ONE (22:30)
[2020-10-04] MEDS ORDERED: [UNRECOGNIZED DRUG - OTHER] IVPB ONE (22:30)
[2020-10-04 23:05] VITALS: PULSE 98
[2020-10-04 23:32] VITALS: RESP 18
[2020-10-05 00:17] VITALS: BP 124/85
== END 2020-10-05 00:16 | disposition home or self-care (01) ==
LOC: EC 20:02
DX: U07.1 COVID-19 (principal); I10 Essential (primary) hypertension; E78.5 Hyperlipidemia, unspecified; J45.909 Unspecified asthma, uncomplicated; K21.9 Gastro-esophageal reflux disease without esophagitis; F32.9 Major depressive disorder, single episode, unspecified; F41.9 Anxiety disorder, unspecified; Z87.891 Personal history of nicotine dependence; Z79.1 Long term (current) use of non-steroidal anti-inflammatories (NSAID); Z79.899 Other long term (current) drug therapy
CPT/HCPCS: 71045; 96365; 96375; 99284; J2405; Q0243

== ENCOUNTER → 2020-10-10 | Outpatient (CLI) | payer OTHER ==
[2020-10-10 15:46] LABS: HCT 37.7 % (34.0-46.0); HGB 12.3 gm/dL (11.4-16.0); Hypochromasia Slight; MCH 26.4 pg (25.0-35.0); MCHC 32.6 g/dL (31.0-37.0); MCV 81.1 fL (80.0-100.0); Mean Platelet Volume 7.4; Platelet Count 547 k/uL (150-450); RBC 4.64 m/uL (3.80-5.40); RDW 15.2 % (11.5-15.5); WBC 8.2 k/uL (3.8-10.6)
[2020-10-10 16:02] LABS: Prothrombin Time 10.3 sec (9.0-12.0)
[2020-10-10 16:05] LABS: ALT 28 U/L (4-34); AST 38 U/L (14-36); African American GFR (CKD) >90 (>60 ml/min/1.73 sqM); Albumin 4.1 g/dL (3.5-5.0); Alkaline Phosphatase 172 U/L (38-126); Anion Gap 8 mmol/L; Blood Urea Nitrogen 15 mg/dL (7-17); Calcium 9.2 mg/dL (8.4-10.2); Carbon Dioxide 26 mmol/L (22-30); Chloride 104 mmol/L (98-107); Glucose 109 mg/dL (74-99); Non-African American GFR(CKD) >90 (>60 ml/min/1.73 sqM); Potassium 4.5 mmol/L (3.5-5.1); Sodium 138 mmol/L (137-145); Total Bilirubin 0.9 mg/dL (0.2-1.3); Total Protein 7.4 g/dL (6.3-8.2)
== END | disposition home or self-care (01) ==
LOC: LABPAT 14:57
PROVIDERS: ATTEND Orthopaedic Surgery
DX: Z01.818 Encounter for other preprocedural examination (principal); R00.0 Tachycardia, unspecified
CPT/HCPCS: 80053; 85027; 85610; 87070; 93005

== ENCOUNTER 2020-10-24 06:00 | Observation (INO) | payer OTHER ==
--- NOTE | 2020-10-23 10:00 | HP ---
HISTORY AND PHYSICAL CHIEF COMPLAINT: Left knee pain. HISTORY OF PRESENT ILLNESS: The patient is a 45-year-old female who presents with progressive left knee pain for the past several years, worsening recently. She notes anterior and lateral pain that worsens with walking. She has had to decrease activity because of significant pain. She has tried previous medications in addition to injections, without much relief. She has been on a weight-loss program and has lost 35 pounds since her last visit. She also notes she recently quit smoking. PAST MEDICAL HISTORY: Past medical history is significant for depression, hypercholesteremia and hypertension. PAST SURGICAL HISTORY: Past surgical history is significant for left knee arthroscopy, hysterectomy, hand surgery and cholecystectomy. CURRENT MEDICATIONS: Atorvastatin, hydroxyzine, Suboxone. ALLERGIES: SHE DENIES DRUG ALLERGIES. FAMILY HISTORY: Noncontributory. SOCIAL HISTORY: Significant for previous tobacco use. REVIEW OF SYSTEMS: Sixteen-point review of systems is otherwise reviewed and is noncontributory. PHYSICAL EXAMINATION: On examination, the patient is approximately 5 feet 5 inches, 235 pounds of endomorphic habitus. HEENT exam is nonfocal. Neck is supple. She has painless passive motion of her left hip. Straight-leg raise is negative. Active motion of the left knee minus 20 to 95 degrees of flexion. She has a mild effusion. She is tender about the medial joint line. Collaterals are stable. Inocente is negative. Nora's is equivocal. She has genu varum alignment. Her distal neurovascular exam appears intact in the left lower extremity. Weight-bearing notch, lateral and Merchant views of the left knee obtained in the office show severe medial compartment narrowing with [id number] changes and subchondral sclerosis. IMPRESSION: 1. Left knee severe medial compartment osteoarthrosis. 2. Obesity. 3. History of opioid abuse. RECOMMENDATIONS: I talked to the patient at length regarding her condition and treatment options. At this point, she is quite limited and symptomatic because of pain related to her osteoarthrosis despite previous conservative measures. After thorough discussion, she opted to proceed with surgery. We will plan to proceed with left total knee arthroplasty. We will institute DVT prophylaxis postoperatively. MMODL / IJN: [id number] /
[~2020-10-24 06:00] MED LIST changes: +ACETAMINOPHEN TAB 500 MG TAB PO PRN; -DEXAMETHASONE SOD PHOSPHATE 10 MG/ML 1 ML VIAL ONE; -IOPAMIDOL M200 10 ML VIAL ONE; -IV FLUID CONTINUATION 1,000 ML IV ONE; -LACTATED RINGERS 1,000 ML IV ONE; -LACTATED RINGERS 1,000 ML IV SCH; -LIDOCAINE 1% 20 ML VIAL (10MG/ML) FOR IV START INTRADERMA ONE; +MELOXICAM 7.5 MG TAB PO PRN; -MIDAZOLAM 2 MG/2 ML VIAL ONE; +TRANEXAMIC ACID 1,000 MG in SODIUM CHLORIDE 0.9% 100 ML IVPB PRN; -fentaNYL (PF) 50 MCG/ML 2 ML AMP ONE
[2020-10-24] MEDS ORDERED: ONDANSETRON 4 MG/2 ML VIAL ONE (06:39)
[2020-10-24] MEDS ORDERED: LACTATED RINGERS 1,000 ML IV ONE (06:52)
[2020-10-24] MEDS ORDERED: LIDOCAINE 1% (10MG/ML) FOR IV START INTRADERMA ONE (06:52)
[2020-10-24] MEDS ORDERED: ONDANSETRON 4 MG/2 ML VIAL IVP ONE (06:54)
[2020-10-24] MEDS ORDERED: DEXAMETHASONE SOD PHOSPHATE 4 MG/ML 1 ML VIAL IV ONE (06:54)
[2020-10-24] MEDS ORDERED: MIDAZOLAM 2 MG/2 ML VIAL IV ONE (07:11)
[2020-10-24] MEDS ORDERED: fentaNYL (PF) 50 MCG/ML 2 ML AMP ONE (08:26)
[2020-10-24] MEDS ORDERED: PROPOFOL 10 MG/ML 20 ML VIAL IV ONE (08:26)
[2020-10-24] MEDS ORDERED: SODIUM CHLORIDE 0.9% 100 ML BAG ONE (08:26)
[2020-10-24] MEDS ORDERED: TRANEXAMIC ACID 1,000 MG/10 ML VIAL ONE (08:26)
[2020-10-24] MEDS ORDERED: MIDAZOLAM 2 MG/2 ML VIAL ONE (08:26)
[2020-10-24] MEDS ORDERED: ROPIVACAINE 5 MG/ML 30 ML VIAL ONE (08:26)
[2020-10-24] MEDS ORDERED: ceFAZolin 1,000 MG in SODIUM CHLORIDE 0.9% 1,000 ML IRRIGATION ONE (08:53)
[2020-10-24] MEDS ORDERED: NALOXONE 0.4 MG/ML 1 ML VIAL IV PRN (09:56)
[2020-10-24] MEDS ORDERED: MAGNESIUM HYDROXIDE 2,400 MG/10 ML CUP PO PRN (09:56)
[2020-10-24] MEDS ORDERED: ONDANSETRON 4 MG/2 ML VIAL IVP PRN (09:56)
[2020-10-24] MEDS ORDERED: ACETAMINOPHEN TAB 325 MG TAB PO PRN (09:56)
[2020-10-24] MEDS ORDERED: ROPIVACAINE 0.2%-NS ON-Q PUMP 1,090 MG, EMPTY PAIN BALL 1 EACH MISCELLANE PRN (10:23)
--- NOTE | 2020-10-24 10:23 | P.OP ---
Date of Procedure: 10/24/20 Preoperative Diagnosis: Left knee severe tricompartmental osteoarthrosis Postoperative Diagnosis: Same Procedure(s) Performed: Left total knee arthroplastycementedposterior stabilized Implants: Depuy Attune size 5 narrow cemented femoral component, size 4 cemented tibial component, 9 mm articular surface, 32 mm cemented patellar component. This is a posterior stabilized implant. Anesthesia: regional, spinal Surgeon: Ford Dinero Lining Strap Closer #1: Darren Pizarro Estimated Blood Loss (ml): 50 Pathology: other (Bone fragments) Condition: stable Disposition: PACU Indications for Procedure: The patient's a 45-year-old female presents with progressive left knee pain secondary Salvatore arthrosis despite previous extensive conservative measures along with weight loss. A discussion of the risks and benefits of operative intervention versus continued conservative measures was made with the patient. She opted to proceed with surgery. Operative risks to include infection, neurovascular injury, development of blood clots, possible component loosening, possible component failure need for subsequent procedures was discussed. Informed consent was obtained. Operative Findings: As below Description of Procedure: The patient was brought to the operating room, and after induction of spinal anesthesia the left lower extremity was prepped and draped in a normal fashion. The tourniquet was inflated to 270 mm of mercury. A longitudinal incision extending 3 finger breaths above the superior pole of patella extending to the medial aspect the tibial tubercle was then made. The skin and subcutaneous tissues were divided sharply. Electrocautery was used for hemostasis. A medial parapatellar arthrotomy was performed. The medial soft tissues to include the superficial and deep portions of the medial collateral ligament were elevated subperiosteally. The patella was everted. A portion of the retropatellar fat pad was excised sharply. The anterior cruciate ligament was sacrificed. Blunt retractors were placed. A starting hole was made in the distal femur 1 cm anterior to the posterior cruciate ligament origin. An intramedullary femoral guide was then inserted planning on 5 valgus distal cut with 9 mm distal resection. The cutting block was pinned in place. The distal cut was then made. The posterior referencing sizing guide was utilized. I felt size 5 narrow was most appropriate. 3 of external rotation was built into the system and verified off the trans-epicondylar axis and the posterior condyles. The cutting block was pinned in place. The anterior, posterior, and chamfer cuts then made. Bone fragments were removed. The intercondylar guide was placed and the notch cut was made with a sagittal saw. The bone block was removed in one fragment. The trial component was then placed. There is good anterior to posterior and medial to lateral fit. The distal peg holes were drilled. The trial component was removed. Attention was then paid towards preparing the proximal femur. An extra medullary guide was utilized in line with the tibial shaft and second metatarsal distally. I planned on 4 mm resection from the medial compartment. The cutting block was pinned in place. The proximal tibial cut was then made. The bone was removed in one fragment. The remnants of the medial and lateral menisci were excised at the capsular junction with electrocautery. The tibia sized most appropriately at size 4. The trial femoral and tibial components were placed along with a 9 mm articular surface. I was able to obtain full flexion and extension with internal and external rotation. After several flexion and extension cycles, the tibial rotation was marked with electrocautery line with the medial one third of the tibial tubercle. Attention was then paid towards preparing the patella. A patella reamer was utilized taking stem to 14 mm of bone stock. A good flush cut was made. The patella sized most appropriately 32 mm. The peg holes were drilled. The trial components placed. I had good patellofemoral tracking with no hands technique. The trial components were then removed. The tibia was prepared in the appropriate rotation with appropriate drill and keel punch. The posterior osteophytes were removed with a curved osteotome. The flexion and extension gaps were checked and felt to be symmetric at 9 mm. A trial components were then removed. . The bony surfaces were prepared with pulsatile lavage and dried. The tibial component was then cemented place was fully seated. Excess cement was removed. The femoral component cemented place and was fully seated. Excess cement was removed. The trial 9 mm articular surface was placed and the knee was put in full extension. The patella component was cemented place. After the cement had sufficiently hardened, the knee was again taken through a range of motion. Again I was able to obtain full flexion and extension with varus and valgus stress. The trial 9 mm articular surface was removed and the final one inserted. This was fully seated. Care was taken to avoid any soft tissue interposition. Pulsatile lavage was again utilized. The medial parapatellar arthrotomy was closed with #2 Ethibond suture. The tourniquet was deflated with approximately 60 minutes total tourniquet time. Final hemostasis was obtained with the cautery. There was minimal bleeding therefore a deep drain was not placed. The subcutaneous tissues were reapproximated with interrupted 2-0 Vicryl sutures. The skin was reapproximated with 3-0 subcuticular strata fix suture. Skin tape and adhesive was applied. A sterile dressing was applied. The patient was awoken from sedation and transferred to recovery room in good condition. Blood loss was estimated at 50 mL. No complications were incurred. Sponge and needle counts were correct at the end of the case. Eliot MELÉNDEZ assisted during the major components of this case to include exposure, bone resection, implantation, and closure.
--- NOTE | 2020-10-24 10:42 | XR ---
EXAMINATION TYPE: XR knee limited LT DATE OF EXAM: 10/24/2020 COMPARISON: NONE HISTORY: Postop TECHNIQUE: Three views are submitted. FINDINGS: Joint spaces are preserved. Osseous structures are intact. No acute fracture seen. IMPRESSION: 1. No acute fracture or dislocation.
[2020-10-24] MEDS: HYDROmorphone 0.5 MG/0.5 ML SYRINGE IVP PRN (13:41)
[2020-10-24] MEDS: HYDROcodone/APAP 7.5-325MG 1 EACH TAB PO PRN ×3 (15:35→21:47)
--- NOTE | 2020-10-24 16:25 | P.ANPRN ---
Procedure Note - Anesthesia - Nerve Block Performed Left Adductor Canal Infusion Time Out Performed: Yes Date of Procedure: 10/24/20 Procedure Start Time: 07:11 Procedure Stop Time: :28 Location of Patient: PreOp Indication: Acute Post-Operative Pain, Dx/Pain Location, Requested by Surgeon Specifically requested for management of pain by : Ford Dinero Sedation Type: Sedate with meaningful contact maintained Preparation: Sterile Prep, Sterile Dressing Position: Supine Catheter Depth at Skin (cm): 7 Catheter: Indwelling Needle Types: Pajunk Needle Gauge: 21 Ultrasound used to visualize needle placement: Yes Ultrasound used to observe medication spread: Yes Injectate: 0.5% Ropivacaine (see comment for volume) Blood Aspirated: No Pain Paresthesia on Injection Noted: No Resistance on Injection: Normal Image Stored and Saved: Yes Events: Uneventful and Well Tolerated (20cc 0.5% ropivacaine)
--- NOTE | 2020-10-24 16:27 | P.ANPRN ---
Procedure Note - Anesthesia - Nerve Block Performed Left iPack Single Time Out Performed: Yes Date of Procedure: 10/24/20 Procedure Start Time: : Procedure Stop Time: :32 Location of Patient: PreOp Indication: Acute Post-Operative Pain, Dx/Pain Location, Requested by Surgeon Specifically requested for management of pain by : Ford Dinero Sedation Type: Sedate with meaningful contact maintained Preparation: Sterile Prep Position: Supine Catheter: None Needle Gauge: 21 Ultrasound used to visualize needle placement: Yes Ultrasound used to observe medication spread: Yes Injectate: 0.5% Ropivacaine (see comment for volume) Blood Aspirated: No Pain Paresthesia on Injection Noted: No Resistance on Injection: Normal Image Stored and Saved: Yes Events: Uneventful and Well Tolerated (15cc 0.325% ropivacaine)
[2020-10-24] MEDS: SENNOSIDES-DOCUSATE SODIUM 1 EACH TAB PO SCH (21:47)
[2020-10-24] MEDS ORDERED: ALBUTEROL NEBULIZED 2.5 MG/3 ML INHALATION PRN (23:58)
--- NOTE | 2020-10-24 23:58 | P.CONS ---
History of Present Illness - Reason for Consult Consult date: 10/24/20 Medical management - Chief Complaint Left total knee arthroplasty - History of Present Illness Patient is a 45-year-old female with a known history of hypertension, hyperlipidemia, osteoarthritis, asthma, GERD and anxiety/depression prior history of smoking was admitted to the hospital for left total knee arthroplasty due to severe osteoarthritis. Patient tolerated the procedure very well. Po stoperatively patient is currently lying in the bed comfortably. No complaints of chest pain or shortness of breath. No headache or dizziness or lightheadedness. Heart rate around 104 and oxygenating at 93% on room air. Patient has been afebrile. No nausea vomiting or abdominal pain or diarrhea. Review of Systems Constitutional: Patient denies any fever or chills . No generalized weakness or weight loss. Abdomen: Patient denied nausea vomiting and diarrhea and abdominal pain. Cardiovascular: Patient denies any chest pain or short of breath no palpitations. Respiratory: patient denied any cough or sputum production. No shortness of breath Neurologic: Patient denied any numbness or tingling headache. Musculoskeletal: Patient denies any complaints of joint swelling or deformity. Skin: Negative Psychiatric: Negative Endocrine: No heat or cold intolerance. No recent weight gain. Genitourinary: No dysuria or hematuria. All other 14 point ROS negative except the above Past Medical History Past Medical History: Asthma, GERD/Reflux, Hyperlipidemia, Hypertension, Osteoarthritis (OA) Additional Past Medical History / Comment(s): BELIEVES SHE HAD COVID IN August, TESTED POSITIVE, NECK PAIN, LEFT KNEE PAIN. CERVICL NECK PAIN. History of Any Multi-Drug Resistant Organisms: None Reported Past Surgical History: Appendectomy, Cholecystectomy, Hysterectomy, Orthopedic Surgery Additional Past Surgical History / Comment(s): Arthroscopy left knee X2. PAIN CLINIC PROCEDURES Past Anesthesia/Blood Transfusion Reactions: No Reported Reaction, Family History of Problems w/ Anesthesia Additional Past Anesthesia/Blood Transfusion Reaction / Comm: mother-PONV Past Psychological History: Anxiety, Depression Additional Psychological History / Comment(s): DIFFICULTY CONCENTRAING WHILE IN SCHOOL Smoking Status: Former smoker Past Alcohol Use History: None Reported Additional Past Alcohol Use History / Comment(s): smokes 1/2 PPD, has smoked since age 14 off and on. Past Drug Use History: None Reported Additional Drug Use History / Comment(s): NO OPIATES FOR PAST 1 year and 3month - Past Family History Mother Family Medical History: No Reported History Medications and Allergies Home Medications Medication Instructions Recorded Confirmed Type Buprenorphine HCl/Naloxone HCl 1 each SL TID 04/08/18 10/24/20 History [Suboxone 8 mg-2 mg Sl Film] Furosemide [Lasix] 40 mg PO QAM 04/08/18 10/24/20 History Ibuprofen [Motrin] 800 mg PO TID PRN 04/08/18 10/24/20 History Pantoprazole [Protonix] 40 mg PO HS 04/08/18 10/24/20 History Potassium Chloride [Klor-Con 10 ER] 10 meq PO DAILY 04/08/18 10/24/20 History hydrOXYzine HCL [Atarax] 25 mg PO HS 04/29/18 10/24/20 History busPIRone HCl [Buspar] 10 mg PO TID PRN 07/06/18 10/24/20 History QUEtiapine [SEROquel] 200 mg PO HS 07/21/18 10/24/20 History Cyclobenzaprine [Flexeril] 10 mg PO TID PRN 02/10/19 10/24/20 History Acetaminophen Tab [Tylenol] 650 mg PO DIRECTED PRN 09/13/19 10/24/20 History Albuterol Inhaler [Ventolin Hfa 1 puff INHALATION DIRECTED PRN 10/19/20 10/24/20 History Inhaler] Allergies Allergy/AdvReac Type Severity Reaction Status Date / Time No Known Allergies Allergy Verified 10/24/20 06:21 Physical Exam Vitals: Vital Signs Temp Pulse Pulse Resp BP BP Pulse Ox 10/24/20 19:35 97.4 F L 114 H 18 123/75 93 L 10/24/20 18:55 99 19 111/74 95 10/24/20 18:54 89 18 120/74 96 10/24/20 16:00 88 18 130/69 95 10/24/20 15:45 102 H 18 126/72 96 10/24/20 15:30 96 18 133/80 95 10/24/20 15:15 94 19 115/76 92 L 10/24/20 15:00 104 H 19 122/83 93 L 10/24/20 14:45 98 19 105/72 94 L 10/24/20 14:00 98.3 F 81 18 123/75 97 10/24/20 13:07 97.6 F 91 16 105/72 95 10/24/20 12:00 91 16 137/85 95 10/24/20 11:45 85 16 133/83 97 10/24/20 11:30 83 16 131/78 94 L 10/24/20 11:15 80 16 131/80 97 10/24/20 11:05 81 16 131/80 97 10/24/20 10:51 77 16 128/79 98 10/24/20 10:36 81 16 123/79 96 10/24/20 10:21 97.3 F L 84 16 125/75 96 10/24/20 07:22 95 16 127/65 100 10/24/20 06:29 98.2 F 113 H 18 134/66 95 Intake and Output 10/24/20 10/24/20 10/24/20 06:59 14:59 22:59 Intake Total 300 651 Output Total 50 Balance 300 601 Intake: IV 300 651 Output: Estimated Blood Loss 50 Other: # Voids 2 Weight 108.5 kg 108.5 kg PHYSICAL EXAMINATION: Patient is lying in the bed comfortably, no acute distress, awake alert and oriented.. HEENT: Normocephalic. Neck is supple. Pupils reactive. Nostrils clear. Oral cavity is moist. Ears reveal no drainage. Neck reveals no JVD, carotid bruits, or thyromegaly. CHEST EXAMINATION: Trachea is central. Symmetrical expansion. Lung dixon clear to auscultation and percussion. Bibasilar diminished sounds. CARDIAC: Normal S1, S2 with no gallops. No murmurs ABDOMEN: Soft. Bowel sounds normal. No organomegaly. No abdominal bruits. Extremities: reveal no edema. No clubbing or cyanosis Neurologically awake, alert, oriented x3 with well-coordinated movements. No focal deficits noted Skin: No rash or skin lesions. Psychiatric: Coperative. Nonsuicidal Musculoskeletal: No joint swelling or deformity. Left knee surgical site is packed .. Results CBC & Chem 7: 10/24/20 06:46 Assessment and Plan Assessment: Left total knee arthroplasty. Postoperative day 0 Hypertension controlled. History of opiate abuse currently on Suboxone Hyperlipidemia Osteoarthritis Tachycardia likely due to anxiety. Improved now. Anxiety/depression GERD Chronic pain was on follow-up with pain care clinic Nicotine addiction Obesity with a BMI 39.8 DVT prophylaxis. Patient will be continued on pain management, bowel regimen and encourage incentive spirometry. Lasix is on hold. Follow-up CBC and CMP tomorrow. Patient will be continued on Seroquel, BuSpar and hydroxyzine. Continue to follow closely and further recommendations based on her clinical course.
[2020-10-25] MEDS: PANTOPRAZOLE 40 MG TABLET PO SCH ×2 (00:13→20:19)
[2020-10-25] MEDS: busPIRone HCl 10 MG TAB PO PRN (00:18)
[2020-10-25] MEDS: HYDROcodone/APAP 7.5-325MG 1 EACH TAB PO PRN ×4 (04:54→22:46)
--- NOTE | 2020-10-25 07:01 | P.PN ---
Progress Note - Text Progress Note Date: 10/25/20 Pt seen and examined at bedside. Patient is POD#1 s/p total knee replacement with adductor canal catheter placed for post operative pain control. Patient is doing well this morning with a pain score of 2/10. She is using adjunctive oral pain medicine to help control her pain when moving. Patient able to ambulate without difficulty. Site is clean and dry without erythema. Patient denies PELLETIER, F/C, N/V, chest pain, SOB, or dizziness. Continue pain pump at current rate. Patients pain control is acceptable for discharge to home.
[2020-10-25] MEDS: HYDROmorphone 0.5 MG/0.5 ML SYRINGE IVP PRN ×3 (07:27→15:47)
[2020-10-25] MEDS: RIVAROXABAN 10 MG TAB PO SCH (07:28)
[2020-10-25] MEDS: MELOXICAM 7.5 MG TAB PO SCH (07:28)
[2020-10-25 10:24] LABS: African American GFR (CKD) 122.1 (60.0-200.0); Anion Gap 11.6 mmol/L (4.00-12.00); BUN/Creat Ratio 12.86 Ratio (12.00-20.00); Calcium 8.6 mg/dL (8.7-10.3); Carbon Dioxide 20.4 mmol/L (21.6-31.8); Non-African American GFR(CKD) 105.4 (60.0-200.0); Potassium 5.2 mmol/L (3.5-5.5)
--- NOTE | 2020-10-25 10:38 | P.PN ---
Subjective Progress Note Date: 10/25/20 Principal diagnosis: Status post left total knee arthroplasty Patient was examined today at bedside, she is resting in her hospital bed. She is having some discomfort throughout the knee. She just ambulated with physical therapy. Pain medication is helping. She is utilizing IV pain medication at this time. She currently denies any headaches, lightheadedness, chest pain or shortness of breath. Objective - Vital Signs Vital signs: Vital Signs Temp 98.7 F 10/25/20 07:03 Pulse 107 H 10/25/20 07:03 Resp 18 10/25/20 07:03 BP 143/84 10/25/20 07:03 Pulse Ox 97 10/25/20 07:03 Intake & Output 10/24/20 10/25/20 10/25/20 18:59 06:59 18:59 Intake Total 651 Output Total 50 Balance 601 Weight 108.5 kg Intake: IV 651 Output: Estimated Blood Loss 50 Other: # Voids 2 1 # Bowel Movements 0 - Exam Left lower extremity: Incision is clean, dry, and intact. The exofin fusion tape is in good condi tion. There is minimal soft tissue swelling and ecchymosis surrounding the medial and lateral aspects of the incision. Calf is soft, no tenderness with palpation. Plantar flexion, dorsiflexion, EHL, FHL are intact. Sensory exam to light touch throughout the extremity is intact, dorsal pedis pulses 2+. - Labs CBC & Chem 7: 10/25/20 05:23 Labs: Abnormal Lab Results - Last 24 Hours (Table) 10/25/20 Range/Units 05:23 Carbon Dioxide 20.4 L (21.6-31.8) mmol/L Calcium 8.6 L (8.7-10.3) mg/dL Assessment and Plan Assessment: Status post left total knee arthroplasty Plan: Pain control, continue use of by mouth medication. IV pain medication for breakthrough pain GI and DVT prophylaxis, continue with current medication Wound care instructions were discussed Icing and elevating techniques discuss Encourage incentive spirometer Medical recommendations Continue daily PT Discharge planning: We'll keep patient one additional night for pain control, plan for discharge home on 10/26/2020
[2020-10-25 13:27] LABS: Anisocytosis Slight; Basophils # (A) 0.1 k/uL (0-0.2); Basophils % (A) 0 %; Eosinophils # (A) 0.1 k/uL (0-0.7); Eosinophils % (A) 0 %; HGB 11.5 gm/dL (11.4-16.0); Hypochromasia Slight; Lymphocytes # (A) 4.2 k/uL (1.0-4.8); Lymphocytes % (A) 34 %; MCH 27.1 pg (25.0-35.0); MCHC 31.9 g/dL (31.0-37.0); MCV 84.9 fL (80.0-100.0); Mean Platelet Volume 7.1; Monocytes # (A) 0.7 k/uL (0-1.0); Monocytes % (A) 6 %; Neutrophils # (A) 7.3 k/uL (1.3-7.7); Neutrophils % (A) 58 %; Platelet Count 445 k/uL (150-450); RBC 4.24 m/uL (3.80-5.40); RDW 16.8 % (11.5-15.5); WBC 12.4 k/uL (3.8-10.6)
[2020-10-25] MEDS: SENNOSIDES-DOCUSATE SODIUM 1 EACH TAB PO SCH (20:19)
[2020-10-26 02:00] VITALS: RESP 18
[2020-10-26] MEDS: HYDROcodone/APAP 7.5-325MG 1 EACH TAB PO PRN ×2 (03:06→09:22)
[2020-10-26 07:35] VITALS: BP 134/80; PULSE 103; TEMP 98.2
[2020-10-26] MEDS: busPIRone HCl 10 MG TAB PO PRN (09:22)
[2020-10-26] MEDS: RIVAROXABAN 10 MG TAB PO SCH (09:22)
[2020-10-26] MEDS: MELOXICAM 7.5 MG TAB PO SCH (09:22)
--- NOTE | 2020-10-26 09:42 | P.PN ---
Subjective Progress Note Date: 10/26/20 Principal diagnosis: Status post left total knee arthroplasty Patient was examined today at bedside, she is resting in her hospital bed. Patient is feeling better today. She currently denies any headaches, lightheadedness, chest pain or shortness of breath. Objective - Vital Signs Vital signs: Vital Signs Temp 98.2 F 10/26/20 07:07 Pulse 103 H 10/26/20 07:07 Resp 18 10/26/20 07:07 BP 134/80 10/26/20 07:07 Pulse Ox 94 L 10/26/20 07:07 Intake & Output 10/25/20 10/26/20 10/26/20 18:59 06:59 18:59 Other: Voiding Method Toilet - Exam Left lower extremity: Incision is clean, dry, and intact. The exofin fusion tape is in good condit ion. There is minimal soft tissue swelling and ecchymosis surrounding the medial and lateral aspects of the incision. Calf is soft, no tenderness with palpation. Plantar flexion, dorsiflexion, EHL, FHL are intact. Sensory exam to light touch throughout the extremity is intact, dorsal pedis pulses 2+. - Labs CBC & Chem 7: 10/25/20 12:50 10/25/20 05:23 Labs: Abnormal Lab Results - Last 24 Hours (Table) 10/25/20 10/25/20 Range/Units 05:23 12:50 WBC 12.4 H (3.8-10.6) k/uL RDW 16.8 H (11.5-15.5) % Carbon Dioxide 20.4 L (21.6-31.8) mmol/L Calcium 8.6 L (8.7-10.3) mg/dL Assessment and Plan Assessment: Status post left total knee arthroplasty Plan: Pain control, plan for discharge home on oral medication GI and DVT prophylaxis, Eliquis 2.5 mg twice a day for 2 weeks Wound care instructions were discussed Icing and elevating techniques discuss Encourage incentive spirometer Medical recommendations Continue daily PT Discharge planning:Plan for discharge home today Time with Patient: Less than 30
--- NOTE | 2020-10-26 10:02 | P.DS ---
Providers Date of admission: 10/25/20 13:49 Expected date of discharge: 10/26/20 Attending physician: Ford Dinero Consults: 10/24/20 09:56 Consult Physician Routine Consulting Provider: Jayshree Reza Consult Reason/Comments: medical management Do you want consulting provider notified?: Yes Primary care physician: Andree Deutsch [facility] Course: Date of admission: 10/24/2020 Date of discharge: 10/26/2020 Admission diagnosis: Status post left total knee arthroplasty Discharge diagnosis: Same Attending physician: Dr. Dinero Surgical procedures: Left total knee arthroplasty Brief history: Patient is a 45-year-old female with a history of progressive primary left knee osteoarthritis. At this point patient has failed conservative treatment measures and has opted to proceed with a elective left total knee arthroplasty. Hospital course: Details of patient's surgery can be found in operative report. Patient tolerated the procedure well and was subsequently transported to orthopedic floor. Patient's orthopeidc and medical care was provided daily. Patient had daily laboratory tests performed for evaluation of overall blood counts. Patient had daily physical therapy to include strengthening range of motion as well as education with walker ambulation. Patient was treated with Xarelto for their postoperative DVT prophylaxis during their inpatient stay. Patient was noted to have a relatively uneventful postoperative course. Patient reported satisfactory pain control with oral pain medications by postoperative day 0. Patient showed satisfactory progress with physical therapy. Patient moved steadily through the program and had no difficulty meeting the goals by postoperative day 2. Given patient's otherwise satisfactory course and having met physical therapy goals, plan is to discharge patient home on postoperative day 2. Discharge condition/disposition: Patient will be discharged home in stable condition. Discharge medications: Instructions are given on resumption of patient's normal daily medications per primary care recommendation, in addition patient will be prescribed Hartshorne 7.5 mg/325 mg, Colace 100 mg, Eliquis 2.5 mg. Discharge instructions: 1. Wound care and infection precautions, keep incision dry and covered while showering, no lotions, creams, moisturizers. No soaking, tubs, pools, hottubs. Do not scrub over the incision. 2. Weight-bear as tolerated with walker / cane until follow-up. 3. Ice and elevate when necessary. Do not exceed 20 minutes per hour with ice pack. 4. Utilize compression sleeve until seen at first follow up appointment. 5. Visiting nursing care. 6. Home physical therapy. 7. Pain meds and anticoagulants per prescription. 8. Pain medication has potential to cause constipation. Increase oral fluid and fiber intake. Contact primary care provider if you have not had a bowel movement within 48 hours after discharge 9. No anti-inflammatory medication until discussed at first post operative vis it, this including Motrin, Aleve, Mobic, Diclofenac. 10. Follow up in office at 2 weeks postop with Eliot Pizarro PA-C/Cuco Javier 11. Follow up with your primary care doctor 7-10 days after discharge. 12. Contact [facility] with any questions, . Procedures: Left total knee arthroplasty Patient Condition at Discharge: Good Plan - Discharge Summary Discharge Rx Participant: No New Discharge Prescriptions: New Apixaban [Eliquis] 2.5 mg PO BID #60 tab Docusate [Colace] 100 mg PO DAILY #30 capsule HYDROcodone/APAP 7.5-325MG [Hartshorne 7.5] 1 - 2 each PO Q6HR PRN #42 tab PRN Reason: Pain No Action Pantoprazole [Protonix] 40 mg PO HS Potassium Chloride [Klor-Con 10 ER] 10 meq PO DAILY Ibuprofen [Motrin] 800 mg PO TID PRN PRN Reason: Pain Furosemide [Lasix] 40 mg PO QAM hydrOXYzine HCL [Atarax] 25 mg PO HS busPIRone HCl [Buspar] 10 mg PO TID PRN PRN Reason: Anxiety QUEtiapine [SEROquel] 200 mg PO HS Cyclobenzaprine [Flexeril] 10 mg PO TID PRN PRN Reason: Muscle Spasm Acetaminophen Tab [Tylenol] 650 mg PO DIRECTED PRN PRN Reason: Pain Albuterol Inhaler [Ventolin Hfa Inhaler] 1 puff INHALATION DIRECTED PRN PRN Reason: Shortness Of Breath Or Wheezing Discharge Medication List Furosemide [Lasix] 40 mg PO QAM 04/08/18 [History] Ibuprofen [Motrin] 800 mg PO TID PRN 04/08/18 [History] Pantoprazole [Protonix] 40 mg PO HS 04/08/18 [History] Potassium Chloride [Klor-Con 10 ER] 10 meq PO DAILY 04/08/18 [History] hydrOXYzine HCL [Atarax] 25 mg PO HS 04/29/18 [History] busPIRone HCl [Buspar] 10 mg PO TID PRN 07/06/18 [History] QUEtiapine [SEROquel] 200 mg PO HS 07/21/18 [History] Cyclobenzaprine [Flexeril] 10 mg PO TID PRN 02/10/19 [History] Acetaminophen Tab [Tylenol] 650 mg PO DIRECTED PRN 09/13/19 [History] Albuterol Inhaler [Ventolin Hfa Inhaler] 1 puff INHALATION DIRECTED PRN 10/19/20 [History] Apixaban [Eliquis] 2.5 mg PO BID #60 tab 10/26/20 [Rx] Docusate [Colace] 100 mg PO DAILY #30 capsule 10/26/20 [Rx] HYDROcodone/APAP 7.5-325MG [Hartshorne 7.5] 1 - 2 each PO Q6HR PRN #42 tab 10/26/20 [Rx] Follow up Appointment(s)/Referral(s): Get Candelario MD [Primary Care Provider] - 1 Week Cuco Wells PAC [PHYSICIAN WEATHER STRIP MECHANIC] - 11/10/20 2:10 pm [facility],Equipment [NON-STAFF] - As Needed (Continuous Passive Motion knee machine and walker) [facility], [NON-STAFF] - As Needed Activity/Diet/Wound Care/Special Instructions: Orthopedic Discharge Instructions: 1. Wound care and infection precautions, keep incision dry and covered while showering, no lotions, creams, moisturizers. No soaking, pools, hot tubs. Do not scrub over incision. 2. Weight-bear as tolerated with walker / cane until follow-up. 3. Ice and elevate when necessary. Do not exceed 20 minutes per hour with ice pack. 4. Utilize compression sleeve until seen at first follow up appointment. 5. Pain meds and anticoagulants per prescription. 6. Pain medication has potential to cause constipation. Increase oral fluid and fiber intake. Contact primary care provider if you have not had a bowel movement within 48 hours after discharge. 7. No anti-inflammatory medication until discussed at first post operative visit, this including Motrin, Aleve, Mobic, Diclofenac. 8. Follow up in office at 2 weeks postop with Eliot Pizarro PA-C/Cuco Wells PA-C 9. Follow up with your primary care doctor 7-10 days after discharge. 10. Contact [facility] with any questions, . Discharge Disposition: HOME WITH HOME HEALTH SERVICES
== END 2020-10-26 13:37 | disposition home health service (06) ==
LOC: OR 06:00 → 4SSUR 10:12 → OR 10-25 10:38 → 4SSUR 10-25 13:49
PROVIDERS: ADMIT Orthopaedic Surgery; ATTEND Orthopaedic Surgery
DX: M17.12 Unilateral primary osteoarthritis, left knee (principal); F11.20 Opioid dependence, uncomplicated; R00.0 Tachycardia, unspecified; I10 Essential (primary) hypertension; J45.909 Unspecified asthma, uncomplicated; K21.9 Gastro-esophageal reflux disease without esophagitis; E78.5 Hyperlipidemia, unspecified; E78.00 Pure hypercholesterolemia, unspecified; F41.9 Anxiety disorder, unspecified; F32.9 Major depressive disorder, single episode, unspecified; F17.210 Nicotine dependence, cigarettes, uncomplicated; G89.29 Other chronic pain; M54.2 Cervicalgia; E66.9 Obesity, unspecified; Z68.39 Body mass index [BMI] 39.0-39.9, adult; Z90.49 Acquired absence of other specified parts of digestive tract; Z90.710 Acquired absence of both cervix and uterus; Z98.890 Other specified postprocedural states; Z79.899 Other long term (current) drug therapy; Z86.16 Personal history of COVID-19
CPT/HCPCS: 27447; 97116; 97161; 64999; 64448; 76942; 80048; 84132; 85025; 88300; 73560; G0378 ×2; C1713 ×2; C1776; J2250; J1100; J0690 ×3; J2405; J3010; J2795 ×2; J2704; J1170 ×2

== ENCOUNTER → 2021-04-16 | Outpatient (CLI) | payer OTHER ==
--- NOTE | 2021-04-16 20:18 | US ---
EXAMINATION TYPE: US kidneys/renal and bladder DATE OF EXAM: 04/16/2021 COMPARISON: CT abdomen and pelvis September 19, 2019 CLINICAL HISTORY: R31.9 HEMATURIA, R10.9 FLANK PAIN,N28.9 HX OF STONE. microscopic hematuria, lt flan k pain, h/o renal stones EXAM MEASUREMENTS: Right Kidney: 10.8 x 5.0 x 5.0 cm Left Kidney: 9.8 x 4.6 x 5.1 cm Right Kidney: No hydronephrosis or masses seen Left Kidney: No hydronephrosis or masses seen Bladder: wnl There is no evidence for hydronephrosis at this point in time. No nephrolithiasis is seen. No lauren s are identified on images saved. The urinary bladder is adequately distended. Bilateral ureteral j ets are not seen. IMPRESSION: Single 3 mm nonobstructing calculus right kidney on CT coronal image 71 not clearly seen on ultrasound. No hydronephrosis noted bilaterally.
== END | disposition home or self-care (01) ==
LOC: RADUSWWP 16:14
PROVIDERS: ATTEND Internal Medicine
DX: N20.0 Calculus of kidney (principal)
CPT/HCPCS: 76770

== ENCOUNTER → 2021-06-04 | Outpatient (CLI) | payer OTHER ==
--- NOTE | 2021-06-04 13:47 | P.PN ---
Subjective Progress Note Date: 06/04/21 Principal diagnosis: A 45 yr old female with a history of severe and chronic neck pain secondary to cervical degenerative disc diseases and spondylosis with facet arthropathy presents today for evaluation of cervical pain. Pain level is 7 out of 10 in intensity, pressure, achy sensation in the middle aspect of her cervical spine which shooting pain up the head, down shoulders bilaterally and down the upper extremities bilaterally. Pain is also accompanied with tingling of the upper extremities occasionally. Pain is provoked by lifting. Pain is alleviated with medication, injections, heat, physical therapy 1 year ago, daily home stretching regimen, repositioning and rest. Interventional pain procedures completed include JAMES & L RFA Cervical spine Patient is currently on Tylenol OTC Patient denies any side effects of the medication(s), denies excessive drowsiness or sleepiness, denies suicidal ideation and reports that the current pain medication is helping to control the pain and improve activities of daily living. Patient denies any motor or sensory deficits. Patient denies any fever or night sweats, denies any change in the bowel movements or urination. Physical Examination: -Constitutional: Cooperative. Not in acute distress . -HEENT: Neck is supple. No lymphadenopathy. No thyromegaly. Normal thyroid size. Eyes: No ptosis , no icterus, no photophobia. ENT: No auditory deficits. Normal oropharynx. No Thrush. - Respiratory: Chest clear to auscultations bilaterally. No wheezing. No rhonchi. - Cardiovascular: Regular rate and rhythm. S1 / S2 , no S3 , no S4. - Gastrointestinal: Abdomen soft no tenderness. Bowel sounds positive in all four quadrants. No organomegaly. - Genitourinary: Deferred. - Neurologic: Cranial nerve II to XII intact. No focal neurological deficits. - Psychatric: Alert & oriented x 3. Matching mood & appropriate affect. Judgment and insight intact. - Lymphatic: No Lymphadenopathy. - Musculoskeletal: Cervical spine: Muscle bulk/ tone/ strength in the bilateral upper extremities normal. Vertebral body tenderness to palpation over C4, C5 Spurling test positive Distraction test positive Facet loading test cervical area positive. Lumbar spine: Motor bulk/ tone/ strength lower extremities , thigh and legs : 5/5 Deep tendon reflexes : Normal Knee Jerk. Normal Ankle Jerk . Vertebral body tenderness to palpation over Lumbar Facet Loading Test positive Straight Leg Raise: positive at 30 degrees right side/ left side Gaenslen's Test positive Sacral spine : Severe tenderness over the Sacroiliac joint: right side / left side Range of motion: Flexion of the lumbar spine <60 degrees Range of motion: Extension of the lumbar spine <20 degrees Gaenslen's Test positive Sparkle test: positive right side / left side Assessment and plan: Chronic neck pain secondary to cervical degenerative disc disease , spo ndylosis with facet arthropathy without myelopathy Recommendation for BL TFESI C4-C5. May need a series of injections, up to 3 within a six-month period, to obtain optimal pain relief. Risks, benefits of procedure discussed and patient verbalized understanding. Denies anticoagulant use. Denies medical history of diabetes. All patient questions answered MAPS reviewed and it was appropriate. I have spent 31 minutes on patient care today. Dr Davis was available by phone for the evaluation of this patient. The time was used to review the medical records including relevant urine studies and Prescription history (MAPs), review of the available imaging, evaluation and examination of the patient, coordination of care with the medical staff and if applicable referring physicians, as well as creation of the medical record PQRS Measure Charge Sheet PQRS Narrative: Smoking Status Current every day smoker Pain Intensity [Neck] 8 Scale Used Numeric (1 - 10) Hx Alcohol Use (MH) No Home Medications: Ambulatory Orders Pantoprazole [Protonix] 40 mg PO HS 04/08/18 Docusate [Colace] 100 mg PO DAILY #30 capsule 10/26/20 Buprenorphine HCl/Naloxone HCl [Suboxone 8 mg-2 mg Sl Film] 1 each SL TID 06/01/21 Tamsulosin HCl [Flomax] 0.4 mg PO DAILY 06/01/21
[2021-06-04 13:48] VITALS: BP 139/92; PULSE 98; RESP 18; TEMP 98.2
== END ==
LOC: PNWHC3 13:19
PROVIDERS: ATTEND Specialist
DX: M50.30 Other cervical disc degeneration, unspecified cervical region (principal); M47.812 Spondylosis without myelopathy or radiculopathy, cervical region; G89.29 Other chronic pain; F17.200 Nicotine dependence, unspecified, uncomplicated
CPT/HCPCS: 99211

== ENCOUNTER 2022-12-27 14:39 | Emergency (ER) | payer OTHER ==
[2022-12-27 15:01] VITALS: RESP 18
[2022-12-27] MEDS ORDERED: methylPREDNISolone SOD SUCCI 125 MG/2 ML VIAL IM STA (16:45)
[2022-12-27] MEDS ORDERED: diphenhydrAMINE 50 MG/ML 1 ML VIAL IM STA (16:46)
[2022-12-27] MEDS ORDERED: diphenhydrAMINE 25 MG CAP PO STA (16:46)
[2022-12-27] MEDS ORDERED: FAMOTIDINE 20 MG TAB PO STA (16:46)
[2022-12-27] MEDS ORDERED: hydrOXYzine HCL 25 MG TAB PO STA (16:48)
[2022-12-27] MEDS ORDERED: PERMETHRIN 5% CREAM 60 GM TUBE TOPICAL ONE (17:00)
[2022-12-27] MEDS ORDERED: diphenhydrAMINE 2% CREAM 28.4 GM TUBE TOPICAL SCH (17:00)
--- NOTE | 2022-12-27 17:01 | ED ---
General Adult HPI - General Chief complaint: Skin/Abscess/Foreign Body Stated complaint: RASH Time Seen by Provider: 12/27/22 15:58 Source: patient, RN notes reviewed Mode of arrival: ambulatory Limitations: no limitations - History of Present Illness Initial comments: 47-year-old female significant past medical history presents emergency department with a chief complaint of rash. Patient reports bad, itchy rash to bilateral lower extremities torso that started approximately 3 weeks ago. She was seen and evaluated by urgent care on 12/19/2022. He prescribed her steroids, Benadryl, oral Keflex. She reports worsening symptoms. She denies any known fevers. No notes in the household has it. Denies any new lotions, detergents, soaps. - Related Data Home Medications Medication Instructions Recorded Confirmed Pantoprazole [Protonix] 40 mg PO HS 04/08/18 06/04/21 Buprenorphine HCl/Naloxone HCl 1 each SL TID 06/01/21 06/04/21 [Suboxone 8 mg-2 mg Sl Film] Tamsulosin HCl [Flomax] 0.4 mg PO DAILY 06/01/21 06/04/21 Previous Rx's Medication Instructions Recorded Docusate [Colace] 100 mg PO DAILY #30 capsule 10/26/20 Allergies Allergy/AdvReac Type Severity Reaction Status Date / Time No Known Allergies Allergy Verified 06/04/21 13:23 Review of Systems ROS Statement: Those systems with pertinent positive or pertinent negative responses have been documented in the HPI. ROS Other: All systems not noted in ROS Statement are negative. Past Medical History Past Medical History: Asthma, GERD/Reflux, Hyperlipidemia, Hypertension Additional Past Medical History / Comment(s): NECK PAIN, LEFT KNEE PAIN. CERVICL NECK PAIN. History of Any Multi-Drug Resistant Organisms: None Reported Past Surgical History: Appendectomy, Cholecystectomy, Hysterectomy, Joint Replacement, Orthopedic Surgery Additional Past Surgical History / Comment(s): arthroscopy left knee X2, PAIN CLINIC PROCEDURES, LT TKA, Past Anesthesia/Blood Transfusion Reactions: No Reported Reaction, Family History of Problems w/ Anesthesia Additional Past Anesthesia/Blood Transfusion Reaction / Comment(s): mother-PONV Past Psychological History: Anxiety, Depression Smoking Status: Current every day smoker Past Alcohol Use History: None Reported Past Drug Use History: None Reported - Past Family History Mother Family Medical History: No Reported History General Exam - General Exam Comments Initial Comments: General: Alert, in no acute distress Head: atraumatic normocephalic. Eyes PERRL, EOMI intact, mucous membranes moist Respiratory: Lungs clear to auscultation bilaterally Cardiovascular: Regular rate and rhythm Abdominal: Soft without guarding or rebound Extremities: Normal inspection with full range of motion and normal capillary refill, erythematous, raised, scaly rash to bilateral upper extremities and torso and chest. nikosvski sign negative. No sloughing. Neuroogic: alert and oriented 3, CN II-XII intact, able to ambulate with steady gait Skin: warm dry and intact with normal color Limitations: no limitations Course Vital Signs 12/27/22 14:42 Temperature 98.3 F Pulse Rate 124 H Respiratory 18 Rate Blood Pressure 149/106 O2 Sat by Pulse 97 Oximetry - Reevaluation(s) Reevaluation #1: 12/27/22 17:00 Dr. Kaye, At bedside to evaluate patient. Medical Decision Making - Medical Decision Making Was pt. sent in by a medical professional or institution (, PA, COMPUTER REPAIR ENGINEER, urgent care, hospital, or detention...) When possible be specific @ -[No] Did you speak to anyone other than the patient for history (EMS, parent, family, police, friend...)? What history was obtained from this source @ -[No] Did you review nursing and triage notes (agree or disagree)? Why? @ -[I reviewed and agree with nursing and triage notes] Were old charts reviewed (outside hosp., previous admission, EMS record, old EKG, old radiological studies, urgent care reports/EKG's, detention records)? Report findings @ -[No old charts were reviewed] Differential Diagnosis (chest pain, altered mental status, abdominal pain women, abdominal pain men, vaginal bleeding, weakness, fever, dyspnea, syncope, headache, dizziness, GI bleed, back pain, seizure, CVA, palpatations, mental health, musculoskeletal)? @ -[not applicable] EKG interpreted by me (3pts min.). @ -[As above] X-rays interpreted by me (1pt min.). @ -[None done] CT interpreted by me (1pt min.). @ -[None done] U/S interpreted by me (1pt. min.). @ -[None done] What testing was considered but not performed or refused? (CT, X-rays, U/S, labs)? Why? @ -[None] What meds were considered but not given or refused? Why? @ -[None] Did you discuss the management of the patient with other professionals (professionals i.e. , PA, COMPUTER REPAIR ENGINEER, lab, RT, psych nurse, 7th grade social studies teacher, project geophysicist, teacher, forest officer, telehealth case manager)? Give summary @ -[No] Was smoking cessation discussed for >3mins.? @ -[No] Was critical care preformed (if so, how long)? @ -[No] Were there social determinants of health that impacted care today? How? (Homelessness, low income, unemployed, alcoholism, drug addiction, transportation, low edu. Level, literacy, decrease access to med. care, usp, rehab)? @ -[No] Was there de-escalation of care discussed even if they declined (Discuss DNR or withdrawal of care, Hospice)? DNR status @ -[No] What co-morbidities impacted this encounter? (DM, HTN, Smoking, COPD, CAD, Cancer, CVA, ARF, Chemo, Hep., AIDS, mental health diagnosis, sleep apnea, morbid obesity)? @ -[None] Was patient admitted / discharged? Hospital course, mention meds given and route, prescriptions, significant lab abnormalities, going to OR and other pertinent info. @ Discharged. This is a 47-year-old female presents the emergency department with rash. Patient had a thorough history and physical exam performed which reveals erythematous, raised,, black to bilateral upper extremities and torso. Patient will be given permethrin and Benadryl cream. Patient given Solu-Medrol, Pepcid, Benadryl with mild symptomatic improvement. Strict return precautions discussed at length. Case discussed with Dr. Kaye, [facility] who Undiagnosed new problem with uncertain prognosis? @ -[No] Drug Therapy requiring intensive monitoring for toxicity (Heparin, Nitro, Insulin, Cardizem)? @ -[No] Were any procedures done? @ -[No] Diagnosis/symptom? @ -Rash vs, Scabies Acute, or Chronic, or Acute on Chronic? @ -Acute Uncomplicated (without systemic symptoms) or Complicated (systemic symptoms)? @ -Uncomplicated Side effects of treatment? @ -[No] Exacerbation, Progression, or Severe Exacerbation? @ -[No] Poses a threat to life or bodily function? How? (Chest pain, USA, CT, pneumonia, PE, COPD, DKA, ARF, appy, cholecystitis, CVA, Diverticulitis, Homicidal, Suicidal, threat to staff... and all critical care pts) @ -Low likelihood Disposition Clinical Impression: Rash Disposition: HOME SELF-CARE Condition: Stable Instructions (If sedation given, give patient instructions): Urticaria (ED), Acute Rash (ED), Dermatitis (ED) Additional Instructions: Please apply creams 3 times daily Please take oral Benadryl Please return if symptoms worsen or rash spreads Is patient prescribed a controlled substance at d/c from ED?: No Referrals: Yo Greenwood [Primary Care Provider] - 1-2 days Becky Tesfaye MD [STAFF PHYSICIAN] - 1-2 days Time of Disposition: 17:51
[2022-12-27 18:18] VITALS: BP 159/91; PULSE 78; TEMP 98
== END 2022-12-27 18:19 | disposition home or self-care (01) ==
LOC: EC 14:39
DX: R21 Rash and other nonspecific skin eruption (principal); J45.909 Unspecified asthma, uncomplicated; K21.9 Gastro-esophageal reflux disease without esophagitis; I10 Essential (primary) hypertension; F41.9 Anxiety disorder, unspecified; F32.A Depression, unspecified; F17.200 Nicotine dependence, unspecified, uncomplicated; Z79.899 Other long term (current) drug therapy
CPT/HCPCS: 99282; 96372; J2930